=== PATIENT | female | born 1940 | race Caucasian/White ===

== ENCOUNTER → 2022-05-24 06:19 | Outpatient (CLI) | payer MEDICARE, SELFPAY ==
[2022-05-24 19:08] LABS: Alanine Aminotransferase 16 U/L (12-78); Albumin Level 4.2 g/dl (3.5-5.0); Albumin/Globulin Ratio 1.4 (1.1-1.8); Alkaline Phosphatase 81 U/L (38-126); Anion Gap 11.6 mEq/L (5-15); Aspartate Amino Transferase 28 U/L (14-36); Bilirubin,Total 0.3 mg/dl (0.2-1.3); Blood Urea Nitrogen 29 mg/dl (7-17); Calcium 9.9 mg/dl (8.4-10.2); Carbon Dioxide 24 mmol/L (22.0-30.0); Chloride 105 mmol/L (98-107); Estimated Glomerular Filt Rate 48 ml/min (>60); GFR (African American) 58 ML/MIN (>60); Glucose 91 mg/dl (74-100); Potassium 4.6 mmoL/L (3.5-5.1); Sodium 136 mmol/L (136-145); Total Protein,Serum 7.2 g/dl (6.3-8.2); Uric Acid 7.9 mg/dl (2.5-6.2)
[2022-05-24 19:15] LABS: Erythrocyte Sedimentation Rate 22 mm/hr (0-30)
== END ==
PROVIDERS: PCP Family Medicine; Visit Provider Family Medicine
DX: E79.0 Hyperuricemia without signs of inflammatory arthritis and tophaceous disease (principal); M25.572 Pain in left ankle and joints of left foot
CPT/HCPCS: 80053; 84550; 85651

== ENCOUNTER → 2022-08-23 10:40 | Outpatient (CLI) | payer MEDICARE, SELFPAY ==
[2022-08-23 19:00] LABS: Alanine Aminotransferase 14 U/L (12-78); Albumin Level 4.4 g/dl (3.5-5.0); Albumin/Globulin Ratio 1.6 (1.1-1.8); Alkaline Phosphatase 101 U/L (38-126); Anion Gap 15.3 mEq/L (5-15); Aspartate Amino Transferase 28 U/L (14-36); Bilirubin,Total 0.5 mg/dl (0.2-1.3); Blood Urea Nitrogen 27 mg/dl (7-17); Carbon Dioxide 27 mmol/L (22.0-30.0); Chloride 99 mmol/L (98-107); Estimated Glomerular Filt Rate 53 ml/min (>60); GFR (African American) 65 ML/MIN (>60); Globulin 2.8 g/dL (1.3-3.2); Glucose 79 mg/dl (74-100); Potassium 5.3 mmoL/L (3.5-5.1); Sodium 136 mmol/L (136-145); Total Protein,Serum 7.2 g/dl (6.3-8.2); Uric Acid 6.1 mg/dl (2.5-6.2)
[2022-08-23 19:15] LABS: Free T4 (Free Thyroxine) 1.18 ng/dl (0.78-2.19)
== END ==
PROVIDERS: PCP Nurse Practitioner; Visit Provider Nurse Practitioner
DX: E03.9 Hypothyroidism, unspecified (principal); E79.0 Hyperuricemia without signs of inflammatory arthritis and tophaceous disease; I10 Essential (primary) hypertension
CPT/HCPCS: 80053; 84439; 84443; 84550

== ENCOUNTER → 2022-09-16 13:08 | Outpatient (CLI) | payer MEDICARE, SELFPAY ==
--- NOTE | 2022-09-16 13:09 | MM_ITS ---
PROCEDURE INFORMATION: Exam: Bilateral Screening 3D Mammography Exam date and time: 09/16/2022 1:09 PM Age: 82 years old Clinical indication: Screening examination TECHNIQUE: Imaging protocol: Bilateral Screening tomosynthesis and 2D mammography including computer-aided detection (CAD) when performed. COMPARISON: MG SCREENING BILATERAL 06/13/2018 8:58 AM FINDINGS: MAMMOGRAPHY: Breast composition: The breasts are heterogeneously dense, which may obscure small masses. Mass: None. Architectural distortion: None. Calcifications: No suspicious calcifications. Asymmetric density: None. Skin thickening: None. Axillary adenopathy: None. IMPRESSION: No mammographic evidence of malignancy. Annual screening is recommended unless otherwise clinically indicated. ASSESSMENT: BI-RADS Category 1: Negative
== END ==
PROVIDERS: PCP Nurse Practitioner; Visit Provider Nurse Practitioner
DX: Z12.31 Encounter for screening mammogram for malignant neoplasm of breast (principal)
CPT/HCPCS: 77063; 77067

== ENCOUNTER 2022-12-27 07:26 | Day surgery (SDC) | payer MEDICARE, SELFPAY ==
[2022-12-26 09:34] VITALS: BMI 39.2
[2022-12-27 07:52] VITALS: BP 153/81; PULSE 95; RESP 18; TEMP 36.3; O2SAT 97
--- NOTE | 2022-12-27 08:13 | P.PN_ITS ---
[facility] Disclaimer: The information contained in this section may have been updated after the patient was seen, as this information can be updated by other users. Medical History Acquired hypothyroidism Anxiety and depression Colon polyp Essential hypertension History of cataract History of COVID-19 HTN (hypertension) Hyperlipidemia Hyperuricemia Pneumonia Uterine cancer Surgical History History of colonoscopy (~2018) History of dental surgery History of hysterectomy (~2014) History of hysterectomy History of tonsillectomy Family History Other Cancer Diabetes Hypertension Social History Smoking Status: Former smoker years smoked: 2 smoking status stop date: 1977 alcohol intake: never substance use type: denies use current occupational status: retired Travel in the last 8 weeks: None caffeine: Yes [facility] Anesthesia Checklist Patient Identification Patient Identification: Arm Band Structural Data Admitted From: Home Planned Operative Procedure/s: colonoscopy Consent for Planned Operative Procedure(s) Verified: Yes Verified Documents: Surgical Consent and History and Physical NPO Status Verified Time NPO: 00:00 Additional verifications Anesthesia Reactions: No Airway Assessment C-Spine Mobility Assessed: Yes TMJ Mobility Assessed: Yes Dentition: Dentures-good fit Neurological Assessment Level of Consciousness: Awake and Alert Anesthesia Plan Anesthesia Risk discussed: Yes Anesthesia Plan: Verified ASA Class: II Anesthesia Type: MAC
[2022-12-27 08:14] VITALS: O2SAT 97
--- NOTE | 2022-12-27 08:54 | P.PCN_ITS ---
Procedure: Date: 12/27/22 Patient Date of :: 1940 Procedure Performed:: Colonoscopy with polypectomy Indications:: History of colon polyps Patient states that she is status post colonoscopy (x2) between 2018 and 2019 with a known history of large complex polyps in the right colon. She reports undergoing tattoo placement during her original colonoscopy to facilitate future evaluation. Performing Provider:: Demond Valadez MD Referring Provider:: . Sedation:: Monitored anesthesia care Procedure:: After informed consent was obtained the patient was taken to the endoscopy suite. Sedation ensued after the patient was transferred to the left lateral decubitus position. Pulse, blood pressure, and oxygen saturation were monitored throughout the procedure. Digital rectal exam revealed no significant abnormality. The colonoscope was placed in position. The entire colon was evaluated. The colonoscope was carefully removed and the patient was transferred to recovery in stable condition. Please see findings and specimens below for detail. Findings:: Hemorrhoidal cushions Bowel preparation moderate to poor Fairly significant lack of relaxation/spasticity Recurrent/persistent polyp at site of tattoo Specimens:: Recurrent/persistent right colon polyp (cold snare) Recommendations:: Timing of repeat colonoscopy is pending pathology but will likely be between 6- 12 months with extended/alternate bowel preparation. Complications:: No immediate Estimated blood obtained (mL): 1
[2022-12-27 08:55] VITALS: BP 87/59; PULSE 87; RESP 12; TEMP 36.6; O2SAT 96
[2022-12-27 09:05] VITALS: BP 105/64; PULSE 88; RESP 16; O2SAT 95
[2022-12-27 09:15] VITALS: BP 102/60; PULSE 89; RESP 16; O2SAT 99
[2022-12-27 09:25] VITALS: BP 110/70; PULSE 85; RESP 16; TEMP 36.6; O2SAT 99
== END 2022-12-27 09:41 | disposition home or self-care (01) ==
PROVIDERS: PCP Family Medicine; Visit Provider Surgery
PROC: 0DJD8ZZ Inspection of Lower Intestinal Tract, Via Natural or Artificial Opening Endoscopic (ICD-10-PCS; principal; 2022-12-27 08:30)
DX: Z12.11 Encounter for screening for malignant neoplasm of colon (principal); Z86.010 Personal history of colon polyps; Z79.899 Other long term (current) drug therapy
CPT/HCPCS: 45385; 88300

== ENCOUNTER → 2023-02-13 23:21 | Outpatient (CLI) | payer MEDICARE, SELFPAY ==
[2023-02-13 19:26] LABS: Microalbumin/Creatinine Ratio 14.5
[2023-02-13 19:28] LABS: Creatinine,Urine Random 122 mg/dL (Not Estab.)
[2023-02-13 19:47] LABS: Chloride 97 mmol/L (98-107); Potassium 4.5 mmoL/L (3.5-5.1); Sodium 138 mmol/L (136-145)
[2023-02-13 19:49] LABS: Alanine Aminotransferase 18 U/L (12-78); Blood Urea Nitrogen 27 mg/dl (7-17); Estimated Glomerular Filt Rate 48 ml/min (>60); GFR (African American) 58 ML/MIN (>60)
[2023-02-13 19:50] LABS: Albumin Level 4.2 g/dl (3.5-5.0); Albumin/Globulin Ratio 1.4 (1.1-1.8); Alkaline Phosphatase 72 U/L (38-126); Anion Gap 19.5 mEq/L (5-15); Aspartate Amino Transferase 29 U/L (14-36); Bilirubin,Total 0.6 mg/dl (0.2-1.3); Calcium 9.8 mg/dl (8.4-10.2); Carbon Dioxide 26 mmol/L (22.0-30.0); Chol/HDL Ratio 4.5 (1-3.5); Cholesterol 218 mg/dl (140-200); Glucose 87 mg/dl (74-100); HDL Cholesterol 48 mg/dl (40-60); Total Protein,Serum 7.2 g/dl (6.3-8.2); Triglycerides 157 mg/dl (30-150); Uric Acid 6.1 mg/dl (2.5-6.2); VLDL Cholesterol 31 mg/dL (0-40)
[2023-02-13 20:01] LABS: Direct LDL Cholesterol 125.27 mg/dL (100-129)
[2023-02-13 20:06] LABS: Free T4 (Free Thyroxine) 1.54 ng/dl (0.78-2.19)
[2023-02-13 20:21] LABS: Thyroid Stimulating Hormone 0.11 uIU/mL (0.465-4.68)
== END ==
PROVIDERS: PCP Nurse Practitioner; Visit Provider Nurse Practitioner
DX: E03.9 Hypothyroidism, unspecified (principal); E78.5 Hyperlipidemia, unspecified; E79.0 Hyperuricemia without signs of inflammatory arthritis and tophaceous disease; I10 Essential (primary) hypertension; F32.A Depression, unspecified; F41.9 Anxiety disorder, unspecified
CPT/HCPCS: 80053; 80061; 82043; 82570; 84439; 84443; 84550

== ENCOUNTER 2023-05-01 18:19 | Emergency (ER) | payer MEDICARE, SELFPAY ==
[2023-05-01 18:20] VITALS: BP 156/73; PULSE 88; RESP 18; TEMP 36.7; O2SAT 96; BMI 37.9
[2023-05-01 18:31] VITALS: BP 154/64; PULSE 88; RESP 20; O2SAT 97
--- NOTE | 2023-05-01 18:44 | PC.NURSE ---
DR RAINES AT BEDSIDE
--- NOTE | 2023-05-01 19:01 | HMH.EDGENADL ---
Discharge Plan Disposition Patient Disposition: Home, Self-Care Prescriptions Prescriptions: New cephalexin 500 mg capsule 500 mg PO QID 10 Days Qty: 40 0RF prednisone 50 mg tablet 50 mg PO DAILY 5 Days Qty: 5 0RF Rx Instructions: Please begin 1 day after ED visit colchicine 0.6 mg capsule 0.6 mg PO BID 14 Days Qty: 28 0RF Rx Instructions: Please take 1.2 mg followed by 0.6 mg after 1 hour (max dose 1.8 mg/day). Day 2 and thereafter 0.6 mg BID until flare resolves. No Action levothyroxine [Euthyrox] 75 mcg tablet 75 mcg PO .COMPLEX Qty: 90 1RF Rx Instructions: 75 mcg orally take 1/2 tab on Monday and 1 tab daily Monday through Monday; lisinopril-hydrochlorothiazide 20-25 mg tablet 1 tab PO DAILY Qty: 90 1RF citalopram 20 mg tablet 20 mg PO DAILY Qty: 90 1RF allopurinol 100 mg tablet 100 mg PO DAILY Qty: 90 1RF Referrals Follow up/Referrals: Stephen Banks MD [Primary Care Provider] - See instructions Activity Restrictions/Add. Instructions Additional Instructions/Restrictions: The erythema and redness and tenderness surrounding her first MTP joint on her foot is most likely gout. However without a history of an arthrocentesis proving gouty arthritis as well as with the systemic symptoms and low-grade temperature that you have had cannot rule out an infection specifically a septic joint with cellulitis. Please return with worsening symptoms and keep low threshold to return to the emergency department if your temperature is greater than 100.4 consistently or if you are feeling systemically ill. Clinical Impressions Clinical Impression: Gout attack Discharge ED Provider: Whit Pryor General Adult HPI General Chief complaint: Extremity Problem,Nontraumatic Stated complaint: possible gout in right foot Time Seen by Provider: 05/01/23 18:41 Mode of Arrival: Wheelchair Limitations: No Limitations Description of Symptoms (Recalled from ER Triage Doc. by RN): PT REPORT RIGHT FOOT PAIN/REDNESS AND SWELLING SINCE MONDAY NIGHT THAT HAS NOT IMPROVED. PT REPORTS HX OF GOUT. NO INJURY History of Present Illness HPI narrative: 83-year-old female here with right foot pain and swelling and erythema. States she has a history of gout and states I think this is a gout flare . She has never had an arthrocentesis proving the diagnosis of gout however has had it many times with improvement with prednisone and colchicine. However she does states she has had some nausea and some chills. This began on her right foot at the MTP joint and has had some erythema that spread on the dorsal aspect of her foot. Related Data Previous Rx's Medication Instructions Recorded allopurinol 100 mg tablet 100 mg PO DAILY hyperuricemia #90 02/15/23 tabs citalopram 20 mg tablet 20 mg PO DAILY Anxiety #90 tabs 02/15/23 levothyroxine 75 mcg tablet 75 mcg PO .COMPLEX THYROID #90 tabs 02/15/23 (Euthyrox) lisinopril 20 1 tab PO DAILY BP #90 tabs 02/15/23 mg-hydrochlorothiazide 25 mg tablet cephalexin 500 mg capsule 500 mg PO QID 10 days #40 caps 05/01/23 colchicine 0.6 mg capsule 0.6 mg PO BID 14 days #28 caps 05/01/23 prednisone 50 mg tablet 50 mg PO DAILY 5 days #5 tabs 05/01/23 Allergies Allergy/AdvReac Type Severity Reaction Status Date / Time ibuprofen Allergy Verified 02/13/23 11:28 surgical tape Allergy Blister Uncoded 02/13/23 11:28 [facility] Disclaimer: The information contained in this section may have been updated after the patient was seen, as this information can be updated by other users. Medical History (Updated 05/01/23 @ 19:00 by Whit Pryor MD) Acquired hypothyroidism Anxiety and depression Colon polyp Essential hypertension History of cataract History of COVID-19 HTN (hypertension) Hyperlipidemia Hyperuricemia Pneumonia Uterine cancer Surgical History (Updated 05/01/23 @ 18:36 by Isabel Vega RN) History of colonoscopy (~2019)
[2023-05-01 19:12] VITALS: BP 146/53; PULSE 84; RESP 18; TEMP 36.8; O2SAT 96
== END 2023-05-01 19:12 | disposition home or self-care (01) ==
PROVIDERS: Emergency Provider Student in an Organized Health Care Education/Training Program; PCP Family Medicine
DX: M10.071 Idiopathic gout, right ankle and foot (principal); E03.9 Hypothyroidism, unspecified; F41.9 Anxiety disorder, unspecified; F32.A Depression, unspecified; I10 Essential (primary) hypertension; E78.5 Hyperlipidemia, unspecified; Z87.891 Personal history of nicotine dependence
CPT/HCPCS: 99283

== ENCOUNTER → 2023-07-11 23:34 | Outpatient (CLI) | payer MEDICARE, SELFPAY ==
[2023-07-11 18:39] LABS: Basophils # 0.1 K/mm3 (0-0.2); Basophils % 0.6 % (0.1-2.0); Eosinophils # 0.5 K/mm3 (0.0-0.4); Hematocrit 47.6 % (37.0-47.0); Hemoglobin 14.7 g/dL (12.2-16.2); Lymphocytes # 3.8 K/mm3 (0.7-4.5); Lymphocytes % 41.4 % (10-50); Mean Corpuscular HGB Conc 30.9 g/dL (31.8-35.4); Mean Corpuscular Hemoglobin 30.9 pg (27.0-31.2); Mean Platelet Volume 9.8 fl (7.4-10.4); Monocytes # 0.6 K/mm3 (0.1-1.0); Monocytes % 6.5 % (1.7-9.3); Neutrophils # 4.2 K/mm3 (1.8-7.8); Neutrophils % 45.5 % (37.0-80.0); Platelet Count 450 K/mm3 (142-424); Red Blood Count 4.77 M/mm3 (4.20-5.40); Red Cell Distribution Width 14.3 % (11.5-17.5); White Blood Count 9.1 K/mm3 (4.8-10.8)
[2023-07-11 19:05] LABS: Alanine Aminotransferase 20 U/L (12-78); Albumin Level 4.1 g/dl (3.5-5.0); Albumin/Globulin Ratio 1.2 (1.1-1.8); Alkaline Phosphatase 70 U/L (38-126); Anion Gap 16.4 mEq/L (5-15); Aspartate Amino Transferase 30 U/L (14-36); Bilirubin,Total 0.5 mg/dl (0.2-1.3); Blood Urea Nitrogen 26 mg/dl (7-17); Calcium 10.2 mg/dl (8.4-10.2); Carbon Dioxide 21 mmol/L (22.0-30.0); Chloride 102 mmol/L (98-107); Estimated Glomerular Filt Rate 48 ml/min (>60); GFR (African American) 58 ML/MIN (>60); Globulin 3.4 g/dL (1.3-3.2); Glucose 104 mg/dl (74-100); Potassium 4.4 mmoL/L (3.5-5.1); Sodium 135 mmol/L (136-145); Total Protein,Serum 7.5 g/dl (6.3-8.2); Uric Acid 7.7 mg/dl (2.5-6.2)
== END ==
PROVIDERS: PCP Family Medicine; Visit Provider Nurse Practitioner
DX: E79.0 Hyperuricemia without signs of inflammatory arthritis and tophaceous disease (principal)
CPT/HCPCS: 80053; 84550; 85025

== ENCOUNTER 2023-07-18 08:18 | Day surgery (SDC) | payer MEDICARE, SELFPAY ==
--- NOTE | 2023-07-17 10:30 | SUR.PREOP ---
attempted to call the number provided, it is the number to [employer] in [place], [place]. the number provided for her next to kin, her granddaughter, is also disconnected.
--- NOTE | 2023-07-17 10:33 | SUR.PREOP ---
notified Dr. Tomlin office, spoke with [facility]. they have the same numbers on her chart as we do.
--- NOTE | 2023-07-18 08:27 | P.PCN_ITS ---
Procedure: Date: 07/18/23 Patient Date of :: 1940 Procedure Performed:: Colonoscopy Indications:: History of colon polyps Colonoscopy is in 2018 and again in 2019 revealed a large/complex right colon po lyp status post excision and tattoo placement. Repeat colonoscopy in December of this year was somewhat complicated by moderate to poor bowel preparation and poor relaxation. Persistent polypoid tissue noted at tattoo site. Pathology of the persistent polypoid tissue was notable only for foreign material consistent with dietary origin . Performing Provider:: Demond Valadez MD Referring Provider:: . Sedation:: Monitored anesthesia care Procedure:: After informed consent was obtained the patient was taken to the endoscopy suite. Sedation ensued after the patient was transferred to the left lateral decubitus position. Pulse, blood pressure, and oxygen saturation were monitored throughout the procedure. Digital rectal exam revealed no significant abnormality. The colonoscope was placed in position. The entire colon was evaluated. The colonoscope was carefully removed and the patient was transferred to recovery in stable condition. Please see findings and specimens below for detail. Findings:: Bowel preparation fair to moderate Fairly significant tortuosity and spasticity No obvious lesion within the region of right-colonic/cecal tattoo Specimens:: None Recommendations:: Repeat colonoscopy in 1-2 years secondary to history of large complex polyps, fair to moderate bowel preparation, and tortuosity/spasticity. Complications:: No immediate Estimated blood obtained (mL): 0 Colonoscopy Component Colonoscopy Component Was a colonoscopy performed during today's procedure?: Yes Recommended follow up colonoscopy of at least 10 years?: No If no, follow up colonoscopy recommended in ___ years?: (See above) Reason for not recommending >/= 10 yr follow-up interval?: (See above)
[2023-07-18 08:33] VITALS: BP 192/99; PULSE 98; RESP 18; TEMP 36.1; O2SAT 96; BMI 40.3
[2023-07-18 08:54] VITALS: O2SAT 95
[2023-07-18 09:20] VITALS: BP 99/62; PULSE 95; RESP 14; TEMP 36.4; O2SAT 95
--- NOTE | 2023-07-18 09:28 | P.PNANES_ITS ---
[facility] Disclaimer: The information contained in this section may have been updated after the patient was seen, as this information can be updated by other users. Medical History Acquired hypothyroidism Anxiety and depression Colon polyp Essential hypertension History of cataract History of COVID-19 HTN (hypertension) Hyperlipidemia Hyperuricemia Pneumonia Uterine cancer Surgical History (Updated 07/18/23 @ 08:38 by Amanda Carpenter RN) H/O breast biopsy History of colonoscopy (~2018) History of dental surgery History of hysterectomy (~2014) History of hysterectomy History of tonsillectomy Status post left foot surgery Family History Other Cancer Diabetes Hypertension Social History (Updated 07/18/23 @ 08:38 by Amanda Carpenter RN) Smoking Status: Former smoker years smoked: 2 smoking status stop date: 1977 alcohol intake: never substance use type: denies use current occupational status: retired Travel in the last 8 weeks: None caffeine: Yes [facility] Anesthesia Checklist Patient Identification Patient Identification: Arm Band and Family Structural Data Admitted From: Home Planned Operative Procedure/s: colonoscopy Consent for Planned Operative Procedure(s) Verified: Yes NPO Status Verified Time NPO: 00:00 Additional verifications Patient : No Anesthesia Reactions: No Hx Blood Transfusions: No Blood Transfusion Reaction: No Cephalosporin Allergy: No Previous Colonoscopy: Yes Airway Assessment Mallampati Score:: Class III C-Spine Mobility Assessed: Yes TMJ Mobility Assessed: Yes Dentition: Edentulous Neurological Assessment Level of Consciousness: Awake, Alert, Appropriate and Follows Commands Hx Seizures: No Numbness or tingling in extremities: No Anesthesia Plan Anesthesia Risk discussed: Yes ASA Class: II Anesthesia Type: MAC
[2023-07-18 09:30] VITALS: BP 130/75; PULSE 90; RESP 16; O2SAT 94
[2023-07-18 09:40] VITALS: BP 134/72; PULSE 83; RESP 16; O2SAT 96
[2023-07-18 09:50] VITALS: BP 128/70; PULSE 80; RESP 16; O2SAT 96
== END 2023-07-18 10:00 | disposition home or self-care (01) ==
PROVIDERS: PCP Family Medicine; Visit Provider Surgery
PROC: 0DJD8ZZ Inspection of Lower Intestinal Tract, Via Natural or Artificial Opening Endoscopic (ICD-10-PCS; CPT G0105; principal; 2023-07-18 09:30)
DX: Z12.11 Encounter for screening for malignant neoplasm of colon (principal); Z86.010 Personal history of colon polyps; K56.2 Volvulus
CPT/HCPCS: G0105

== ENCOUNTER → 2023-08-16 23:53 | Outpatient (CLI) | payer MEDICARE, SELFPAY ==
[2023-08-16 18:45] LABS: Alanine Aminotransferase 21 U/L (12-78); Albumin Level 3.8 g/dl (3.5-5.0); Albumin/Globulin Ratio 1.4 (1.1-1.8); Alkaline Phosphatase 60 U/L (38-126); Anion Gap 10.3 mEq/L (5-15); Aspartate Amino Transferase 35 U/L (14-36); Bilirubin,Total 0.9 mg/dl (0.2-1.3); Blood Urea Nitrogen 14 mg/dl (7-17); Calcium 9.5 mg/dl (8.4-10.2); Carbon Dioxide 33 mmol/L (22.0-30.0); Chloride 100 mmol/L (98-107); Estimated Glomerular Filt Rate 60 ml/min (>60); GFR (African American) 73 ML/MIN (>60); Globulin 2.7 g/dL (1.3-3.2); Glucose 91 mg/dl (74-100); Potassium 3.3 mmoL/L (3.5-5.1); Sodium 140 mmol/L (136-145); Total Protein,Serum 6.5 g/dl (6.3-8.2); Uric Acid 5.1 mg/dl (2.5-6.2)
[2023-08-16 18:49] LABS: Hemoglobin A1C 5.7 % (4.0-6.0)
[2023-08-16 19:02] LABS: Free T4 (Free Thyroxine) 1.59 ng/dl (0.78-2.19)
[2023-08-16 19:15] LABS: Thyroid Stimulating Hormone 3.93 uIU/mL (0.465-4.68)
== END ==
PROVIDERS: PCP Family Medicine; Visit Provider Nurse Practitioner
DX: E03.9 Hypothyroidism, unspecified (principal); E79.0 Hyperuricemia without signs of inflammatory arthritis and tophaceous disease; R73.01 Impaired fasting glucose; F32.A Depression, unspecified; F41.9 Anxiety disorder, unspecified
CPT/HCPCS: 80053; 83036; 84439; 84443; 84550

== ENCOUNTER → 2023-08-18 12:24 | Outpatient (CLI) | payer MEDICARE, SELFPAY ==
--- NOTE | 2023-08-18 12:29 | CT_ITS ---
FINAL REPORT TECHNIQUE: Then section axial CT images of the chest were obtained with contrast. Three-D reformatted images were also obtained.This study was performed with techniques to keep radiation doses as low as reasonably achievable (ALARA). Individualized dose reduction techniques using automated exposure control or adjustment of mA and/or kV according to the patient''s size were employed. CLINICAL HISTORY: chest pain, shortness of breath FINDINGS: There is no evidence of pulmonary embolism. There is no evidence of thoracic aortic aneurysm or dissection. There is no evidence of mediastinal or hilar mass or adenopathy. There is no evidence of pulmonary mass or suspicious nodule. No localized inflammatory process is seen within the lungs. There is mild scarring at the lung bases. Limited images of the upper abdomen demonstrate a large gallstone in the gallbladder. IMPRESSION: No evidence of pulmonary embolism. Cholelithiasis. Reviewed, Interpreted and Dictated by Jesus Najera III, MD Transcribed by Carmen Higuera Authenticated and [facility]
== END ==
PROVIDERS: PCP Nurse Practitioner; Visit Provider Internal Medicine
DX: E03.9 Hypothyroidism, unspecified (principal); E78.5 Hyperlipidemia, unspecified; I10 Essential (primary) hypertension; R06.00 Dyspnea, unspecified; R07.9 Chest pain, unspecified; Z87.891 Personal history of nicotine dependence
CPT/HCPCS: 71275; Q9967

== ENCOUNTER → 2023-08-30 11:11 | Outpatient (CLI) | payer MEDICARE, SELFPAY ==
--- NOTE | 2023-08-30 11:11 | NM_ITS ---
APPROVED REPORT Exam: Nuclear Stress Test Indication: chest pain..soa..fatigue Patient Location: Outpatient Stress Tech: Krissy Hall HI Tech:KARINA Pagan RT(R)(N) Ht: 5 ft 4 in Wt: 240 lbs Bra Size: d HR: 93 bpm BP: 145/79 mmHg BSA: 2.11 m2 Rhythm: NSR TID: 1.19 BMI: 41.1 History: chest pain..soa..fatigue Procedure: Patient received 0.4 mg of intravenous Lexiscan, resting heart rate 93 bpm, resting blood pressure 145/79 mmHg, with Lexiscan maximum heart rate achieved was 106 bpm which is 85 % of the maximum predicted heart rate and blood pressure was 149/72 mmHg. With Lexiscan, patient denied any complaint of chest pain. Cardiac Stress and Resting SPECT Images: Cardiac Stress and Resting SPECT images were obtained using technetium 99m Myoview 32.1 mCi stress and 10.28 mCi at rest. Resting and stress imaging in supine and prone positions demonstrate no evidence of fixed or reversible perfusion defects. Gated imaging demonstrates low-normal global and regional LV systolic function. LVEF is calculated at 50% Conclusion: No evidence of fixed or reversible perfusion defects. Gated imaging demonstrates low-normal global and regional LV systolic function. LVEF is calculated at 50% Electronically signed by : Maribel Perez MD 09/10/2023 21:33:15
--- NOTE | 2023-08-30 11:36 | CA_ITS ---
APPROVED REPORT EXAM: Comprehensive 2D, Doppler, and color-flow Echocardiogram Conditioner Tumbler Operator: Lanny Orellana RVT Ht: 5 ft 4 in Wt: 247lbs BSA: 2.14 BP: 173/87 mmHg Indications: CP,HTN,EX SMOKER,HLD,SOA TDS-PT BODY HABITUS,OVERLAYING LUNG 2D Dimensions IVSd 0.80 cm F: 0.6-1.0 LVEF (Visual) 74.20 % PWd 0.76 cm F: 0.6 - 1.0 LA Volume 33.90 mL LVDd 3.36 cm F: 3.9 - 5.3 LA Volume Index 15.84 mL/m2 (M/F) 16-34 LVDs 1.95 cm F: 2.2 - 3.5 LVOT 2.35 cm (M/F) 1.5-2.5 M-Mode Dimensions LA Diam 3.25 cm (1.9-4.0) Ao Diam 3.73 cm (2.0-3.7) TAPSE 1.66 (<1.7) LV Diastology MED E' 4.50 (< 7 cm/sec) LAT E' 6.50 (<10 cm/sec) Aortic Valve LVOT Max 91.00 (70-110 cm/s) LVOT VTI 18.56 cm AoV Peak Luis Daniel. 121.00 (50-130 cm/s) AI PHT 917.00 ms AO Peak GR. 5.90 mmHg AO Mean GR. 3.40 (<5 mmHg) AO VTI 22.11 (18-25 cm) LALITA (VTI) 3.64 (2.5-4.5 cm2) Pulmonary Valve PV Peak Velocity 76.00 (50-150 cm/s) Tricuspid Valve TR P. Velocity 248.00 cm/s RAP Estimate 10.00 mmHg RVSP 34.60 mmHg Left Ventricle The left ventricle is normal size. The left ventricular systolic function is normal. The left ventricular ejection fraction is within the normal range. There is normal left ventricular wall thickness. There is normal LV segmental wall motion. Diastolic function is indeterminate. LVEF is 60%. Right Ventricle The right ventricle is normal size. The right ventricular systolic function is normal. Atria The left atrium size is normal. The right atrium size is normal. There is no Doppler evidence of interatrial shunt. Aortic Valve The aortic valve is mildly thickened. There is no aortic valvular stenosis. Mild aortic regurgitation. Mitral Valve The mitral valve leaflets are mildly thickened. No evidence of mitral valve stenosis. Trace mitral regurgitation. Tricuspid Valve The tricuspid valve leaflets are thin and pliable. Mild tricuspid regurgitation. RVSP is 25-30 mmHg. Pulmonic Valve The pulmonary valve is normal in structure. Mild pulmonic regurgitation. Great Vessels The aortic root is normal in size. The ascending aorta is mildly dilated, measuring 3.8 cm in diameter. IVC is normal in size and collapses >50% with inspiration. Pericardium There is no pericardial effusion. Other Information Study Quality: Fair Conclusion Normal biventricular systolic function. Mild AI, mild TR. Mildly dilated ascending aorta (3.8 cm). Electronically signed by : Maribel Perez MD 09/10/2023 20:09:55
--- NOTE | 2023-08-30 13:19 | CA_ITS ---
APPROVED REPORT Exam: Pharmacologic Technologist: Krissy Vicente, Ht: 5 ft 4 in Wt: 247 lbs BSA: 2.14 m2 HR: 87 bpm BP: 145/79 mmHg Rhythm: NSR Medical History Medications: Levothyroxine,,,,, Allopurinol,,,,, Lisinopril/HCTZ,,,,, Citalopram,,,,, ColCHINE,,,,, Stress Test Details Test: LEXISCAN Reason for pharmacologic stress test: physical limitation. HR Resting HR: 93 bpm Max Heart Rate (APMHR): 139 bpm Max HR Achieved: 106 bpm Target HR (85% APMHR): 118 bpm % of APMHR: 76 Recovery HR: 95 bpm BP Resting BP: 145/79 mmHg Max BP: 149/72 mmHg Recovery BP: 147.0/76.0 mmHg ECG Resting ECG: NSR, cannot R/O old anterior AK, low voltage QRS Stress ECG: No significant ST changes Arrhythmia: None Clinical Exercise duration: 04:00 min Highest Stage Achieved: Exercise capacity: 1.0 METs Stress ECG Conclusion Symptoms: Mild head discomfort, mild SOA. Arrhythmias/Ectopy: None ST-T Changes: No significant ST changes. Conclusion: Unremarkable Lexiscan stress. Myoview images reported separately. Test Summary REST . . . . . . . Resting REST 04:11 . . 93 . 145/ 79 . . Stage 1 . . . . . . . Myoview Injected Stage 1 01:00 . . 102 . . . . Stage 2 01:00 . . 106 . . . . Stage 3 01:00 . . 100 . 149/ 72 . . Stage 4 01:00 . . 98 . 143/ 71 . Stop exercise at 04:00 RECOVERY 01:00 . . 100 . . . . RECOVERY 02:00 . . 95 . . . . RECOVERY 03:00 . . 100 . 137/ 83 . . RECOVERY 04:00 . . 95 . 137/ 83 . . RECOVERY 04:40 . . 95 . 147/ 76 . . Electronically signed by : Maribel Perez MD 09/10/2023 21:31:57
== END ==
PROVIDERS: PCP Nurse Practitioner; Visit Provider Nurse Practitioner
DX: R07.9 Chest pain, unspecified (principal)
CPT/HCPCS: 78452; 93017; 93018; 93306; A9502; J2785

== ENCOUNTER 2023-09-13 07:25 | Outpatient (CLI) | payer MEDICARE, SELFPAY ==
[2023-09-13] VITALS (10 sets, daily range): BP systolic 107–150; BP diastolic 61–86; PULSE 61–92; RESP 16–18; TEMP 36.8; O2SAT 95–99; BMI 41.1
--- NOTE | 2023-09-13 07:26 | CT_ITS ---
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 A noncontrast coronary calcium scan was performed. A CT attenuation threshold of 130 Hounsfield units (HU) was used for the detection of calcium in contiguous voxels of 1 sq mm in area to be counted as individual lesions. Bolus tracking in the ascending aorta with a threshold of 180 HU was performed. Immediately afterwards, ECG synchronized cardiac CT was then performed from the cardiac base to apex using retrospective gating with ECG tube current modulation. A total of 85 mL of Isovue 370 mg/mL contrast medium was administered at 5 mL/sec followed by a saline flush using a biphasic injection protocol. A tube voltage of 120 KVp was used. The patient received the following medications prior to the cardiac CT. 100 mg of oral metoprolol 5 mg of intravenous metoprolol 0.8 mg of sublingual nitroglycerin The average heart rate at the time of acquisition was 62 bpm and regular. Image Reconstruction Transaxial images were reconstructed at 0.67 mm slide thickness. Data was reviewed interactively on an advanced workstation capable of 2 and 3-dimensional displays in all conventional reconstruction formats, including multiplanar reformations, maximum intensity projections, curved multiplanar reformations, and volume rendered reconstructions. When applicable, selected routine images describing the relevant coronary anatomy and pathology were saved and sent to PACS. Complications None Technical Quality Overall image quality was fair. Coronary artery opacification was suboptimal. Total DLP (Dose-Length Product) is 1282 mGy-cm. The reported value represents the total of one or more individual components during the CT acquisition of this date and at this time, and as such, the same value may appear in more than one CT report depending on the interpreting/reporting physicians. COMPARISON None FINDINGS CT Coronary Calcium Scoring LMA (Left Main Artery) = 0 LAD (Left Anterior Descending) = 213 LCX (Left Coronary Circumflex) = 153 RCA (Right Coronary Artery) = 78 Total Calcium Score = 444 using the AJ-130 method. The observed calcium score of 444 is at 77th percentile for subjects of the same age, sex, and race/ethnicity. The interpretation of the calcium heart score is based on the following continuum*: 0 = no calcified plaque detected (risk of coronary artery disease is very low ??? less than 5%) 1-10 = calcium detected in extremely minimal levels (risk of coronary diseases is still low ??? less than 10%) 11-100 = mild levels of plaque detected with certainty (mild or minimal narrowing of heart arteries is likely) 101-400 = definite,at least moderate levels of plaque detected (relatively high risk of a heart attack within 3-5 years) >401-999 = extensive levels of plaque detected (high risk of heart attack, high levels of vascular disease are present, high likelihood of at least one significant coronary narrowing) *The calcium heart score quantifies the burden of coronary calcification/plaque in the coronary arteries. The calcium heart score is not able to evaluate the presence or burden of non-calcified (i.e. soft) plaque. There is calcification present in the ascending and descending aorta, but no identifiable calcification in the aortic valve, mitral annulus or mitral valve, pericardium, or myocardium. Coronary CT Angiography Coronaries have normal origin and proximal course. The coronary arterial system is left dominant. Note: Stenosis is reported as maximum percentage diameter stenosis. Quantitative Stenosis Grading: Left Main (LM): The left main originates normally from the left sinus of Valsalva. The LM bifurcates into the left anterior descending artery and left circumflex artery. The LM has minimal luminal plaque, but overall is patent with no evidence of significant atherosclerosis. Left Anterior Descending (LAD) and Diagonal Branches: The LAD gives off 3 diagonal branches. There is mixed plaque in the proximal-LAD and mid-LAD segments with up to 30-50% mild luminal stenosis. There is no evidence of LAD bridge. Left Circumflex (LCX) and Obtuse Marginals (OM): The LCX gives off 2 Obtuse Marginal (OM) branches. The RCA gives off a posterior descending artery (PDA) There is calcification in the proximal LAD but without significant luminal narrowing. Right Coronary Artery (RCA): The RCA is a small caliber vessel. The RCA originates normally from the right sinus of Valsalva. There is non-calcified plaque in the ostial RCA with approximately 70% stenosis. The RCA and its branches are patent with no evidence of atherosclerosis. Non-Coronary Cardiac Findings: Analysis of the left ventricular (LV) structure and function was performed after 3-D reconstruction of the LV from axial images, with user-corrected automatic contouring for assessment of LV volumes and user-defined reconstruction from oblique planes for measurement of 3-D cardiac structure and function. LVEDV: 123.6 mL LVESV: 53.0 mL SV: 70.6 mL LVEF: 57.2 % -The left ventricle is normal in size with normal left ventricular systolic function. -There is no left atrial appendage filling defect. Two right pulmonary veins and two left pulmonary veins drain normally into the left atrium. -No pericardial thickening or calcification. -Central and branch pulmonary arteries in the [id number] are unremarkable. -Thoracic aorta within the visualized thoracic aortic-branches in the [id number] is unremarkable. Extracardiac Structures -Hiatal hernia is present. IMPRESSION -Technically difficult study due to body habitus, motion, and suboptimal opacification of coronary arteries. -Severe coronary calcification with an Agatston score = 444 using the AJ-130 method. -The observed calcium score of 444 is at 77th percentile for subjects of the same age, sex, and race/ethnicity. -Presence of possible significant flow-limiting atherosclerosis of the non-dominant RCA, as well as mild stenoses in the LAD and LCX. -CAD-RADS 4A. Management recommendations per ACC/AHA guidelines*, as clinically appropriate. -Hiatal hernia is present. *Recommendations: CAD RADS 0: Reassurance. Consider non-atherosclerotic causes of chest pain. CAD RADS 1: Consider non-atherosclerotic causes of chest pain. Consider preventive therapy and risk factor modification. CAD RADS 2: Consider non-atherosclerotic causes of chest pain. Consider preventive therapy and risk factor modification, particularly for patients with nonobstructive plaque in multiple segments. CAD RADS 3: Consider further functional testing. Consider symptom-guided anti-ischemic and preventive pharmacotherapy as well as risk factor modification per published guideline statements. CAD RADS 4A: Consider further functional testing or invasive coronary angiography with revascularization per published guideline statements. Consider symptom-guided anti-ischemic and preventive pharmacotherapy as well as risk factor modification per published guideline statements. CAD RADS 4B: Invasive coronary angiography recommended with revascularization per published guideline statements. Consider symptom-guided anti-ischemic and preventive pharmacotherapy as well as risk factor modification per published guideline statements. CAD RADS 5: Consider invasive angiography and/or viability assessment with revascularization per published guideline statements. Consider symptom-guided anti-ischemic and preventive pharmacotherapy as well as risk factor modification per published guideline statements. CRITICAL RESULT None COMMUNICATION Per this written report The coronary and cardiac findings of this CCTA were reviewed, reported, and signed by Mateus Perez MD (Weigher Alloy) Conclusion Electronically signed by : Maribel Perez MD 09/13/2023 14:12:39
[2023-09-13] MEDS: METOPROLOL TARTRATE 50MG TABLET 100 MG PO (07:48)
[2023-09-13] MEDS: METOPROLOL TARTRATE 5MG/5ML VIAL 5 MG IV (09:04)
[2023-09-13] MEDS: IOPAMIDOL-370 (76%);100ML BOTTLE 85 ML IV (09:35)
[2023-09-13] MEDS: SODIUM CHLORIDE 0.9% 10ML SYR (RAD ONLY) 10 ML IV (09:35)
[2023-09-13] MEDS: 0.9 % SODIUM CHLORIDE 50 ML VIAL IV (09:35)
== END 2023-09-13 10:10 | disposition home or self-care (01) ==
PROVIDERS: PCP Nurse Practitioner; Visit Provider Internal Medicine
DX: E03.9 Hypothyroidism, unspecified (principal); E78.5 Hyperlipidemia, unspecified; I10 Essential (primary) hypertension; R06.00 Dyspnea, unspecified; R07.9 Chest pain, unspecified; R93.1 Abnormal findings on diagnostic imaging of heart and coronary circulation; I25.10 Atherosclerotic heart disease of native coronary artery without angina pectoris; I25.84 Coronary atherosclerosis due to calcified coronary lesion
CPT/HCPCS: 75571; 75574; Q9967

== ENCOUNTER 2023-09-28 08:32 | Day surgery (SDC) | payer MEDICARE, SELFPAY ==
[2023-09-28] VITALS (13 sets, daily range): BP systolic 115–168; BP diastolic 43–79; PULSE 47–63; RESP 16–18; O2SAT 91–95; BMI 41.7
--- NOTE | 2023-09-28 07:29 | IR_ITS ---
APPROVED REPORT Patient Location: Outpatient Generator Repairer: KARINA Arreaga RT (R) PROCEDURES Left heart catheterization Left ventriculogram Selective coronary angiogram Attempted FFR to the LAD Intravascular ultrasound to the LAD Intravascular ultrasound of the dominant circumflex artery INDICATION Coronary artery disease, Angiographic ambiguity, Abnormal CCTA, Elevated calcium score Informed consent was obtained prior to the procedure. COMPLICATIONS None Estimated Blood Loss: Less than 10 mls TECHNIQUE One percent lidocaine used to anesthetize the right anterior aspect of the wrist. The right radial artery was accessed via the Seldinger technique. A 6 Spanish sheath was placed in the right radial artery. 2.5 mg of Verapamil, 800 mcg of nitroglycerin, 1mg Lidocaine and 5000 U Heparin were given through the arterial sheath. The papa catheter was also used to perform left heart catheterization, left ventriculogram and selective coronary angiogram. At the end the diagnostic angiogram therapeutic Was administered giving a therapeutic ACT and the guide catheter was placed in the left main artery followed by Choice PT extra-support wire placed down the LAD. 2 attempts at performing FFR were undertaken however there were technical abnormalities with the either equipment or monitor which prevented the FFR performance despite 2 separate nevus FFR catheter is being placed into the left main artery. After the FFR failed intravascular ultrasound probe was advanced and the LAD and circumflex artery were interrogated. Both MLA's in the proximal LAD and proximal circumflex artery exceeded 6 mm???. At the end of procedure the apparatus was removed the sheath was removed and hemostasis was achieved and TR banding patient was transferred to postop putting in stable condition ANGIOGRAPHIC RESULTS The left main artery Normal The left anterior descending artery Has proximal concentric 30 to 40% stenosis by angiography with remaining vessel having 10% luminal irregularities The circumflex artery Large dominant with a proximal 30 to 40% concentric stenosis with remaining vessel having 10 to 20% luminal irregularities The right coronary artery Vestigial with an ostial 70 to 80% stenosis The NO ventriculogram reveals Normal 65% The left ventricular end-diastolic pressure 20 mmHg IMPRESSION Mild to moderate disease in the proximal LAD as described above which is nonflow limiting Mild to moderate disease in the proximal abdominal circumflex artery which is also nonflow limiting Severe stenosis in a vestigial right coronary artery which is best managed medically and unlikely to be contributing to any angina or dyspnea Normal ejection fraction Elevated LVEDP PLAN 1. Medical management for coronary disease 2. Treatment of diastolic dysfunction which is likely etiology for patient's symptoms Electronically signed by : Ayo Buckner MD 09/28/2023 11:13:03
[2023-09-28 09:05] LABS: Basophils # 0.1 K/mm3 (0-0.2); Basophils % 0.7 % (0.1-2.0); Eosinophils # 0.5 K/mm3 (0.0-0.4); Eosinophils % 7.2 % (0.1-12.0); Hemoglobin 13.3 g/dL (12.2-16.2); Lymphocytes # 2.6 K/mm3 (0.7-4.5); Lymphocytes % 38.6 % (10-50); Mean Corpuscular HGB Conc 32.4 g/dL (31.8-35.4); Mean Corpuscular Hemoglobin 31.9 pg (27.0-31.2); Mean Corpuscular Volume 98.6 fl (81-99); Mean Platelet Volume 9.1 fl (7.4-10.4); Monocytes # 0.5 K/mm3 (0.1-1.0); Monocytes % 7.3 % (1.7-9.3); Neutrophils # 3.1 K/mm3 (1.8-7.8); Neutrophils % 46.2 % (37.0-80.0); Platelet Count 250 K/mm3 (142-424); Red Blood Count 4.16 M/mm3 (4.20-5.40); Red Cell Distribution Width 14.8 % (11.5-17.5); White Blood Count 6.7 K/mm3 (4.8-10.8)
[2023-09-28 09:12] LABS: Chloride 100 mmol/L (98-107); Sodium 139 mmol/L (136-145)
[2023-09-28 09:15] LABS: Blood Urea Nitrogen 17 mg/dl (7-17); Carbon Dioxide 32 mmol/L (22.0-30.0); Creatinine Clearance Estimated 38 mL/min (50-200); Estimated Glomerular Filt Rate 53 ml/min (>60); GFR (African American) 64 ML/MIN (>60)
[2023-09-28 09:16] LABS: Calcium 8.8 mg/dl (8.4-10.2); Glucose 93 mg/dl (74-100)
[2023-09-28 11:49] LABS: CATHL Activated Clotting Time 246 SEC (74-125)
== END 2023-09-28 14:27 | disposition home or self-care (01) ==
LOC: CATHLAB 08:34
PROVIDERS: PCP Nurse Practitioner; Visit Provider Internal Medicine
DX: E03.9 Hypothyroidism, unspecified (principal); E78.5 Hyperlipidemia, unspecified; I10 Essential (primary) hypertension; R06.00 Dyspnea, unspecified; R93.1 Abnormal findings on diagnostic imaging of heart and coronary circulation; I25.118 Atherosclerotic heart disease of native coronary artery with other forms of angina pectoris; Z79.899 Other long term (current) drug therapy; Z86.16 Personal history of COVID-19
CPT/HCPCS: 80048; 85025; 85347; 92978; 92979; 93458; 99152; 99153; C1725; C1760; C1769; J0153; J1644; Q9967

== ENCOUNTER 2023-10-17 10:19 | Outpatient (CLI) | payer MEDICARE, SELFPAY ==
[2023-10-17 11:20] LABS: Blood Urea Nitrogen 22 mg/dl (7-17); Calcium 9.4 mg/dl (8.4-10.2); Carbon Dioxide 26 mmol/L (22.0-30.0); Chloride 102 mmol/L (98-107); Estimated Glomerular Filt Rate 48 ml/min (>60); GFR (African American) 58 ML/MIN (>60); Glucose 82 mg/dl (74-100); Sodium 135 mmol/L (136-145)
[2023-10-17 11:21] LABS: Anion Gap 10.9 mEq/L (5-15); Potassium 3.9 mmoL/L (3.5-5.1)
== END 2023-10-17 23:59 ==
LOC: LAB 10:20
PROVIDERS: PCP Nurse Practitioner; Visit Provider Nurse Practitioner
DX: E03.9 Hypothyroidism, unspecified (principal); E78.5 Hyperlipidemia, unspecified; I11.9 Hypertensive heart disease without heart failure; I25.10 Atherosclerotic heart disease of native coronary artery without angina pectoris; R06.00 Dyspnea, unspecified; Z87.891 Personal history of nicotine dependence
CPT/HCPCS: 36415; 80048

== ENCOUNTER 2023-11-20 22:03 | Outpatient (CLI) | payer MEDICARE, SELFPAY ==
[2023-11-20 20:17] LABS: Alanine Aminotransferase 17 U/L (12-78); Albumin Level 3.9 g/dl (3.5-5.0); Albumin/Globulin Ratio 1.6 (1.1-1.8); Alkaline Phosphatase 61 U/L (38-126); Anion Gap 9.6 mEq/L (5-15); Aspartate Amino Transferase 28 U/L (14-36); Bilirubin,Total 0.7 mg/dl (0.2-1.3); Blood Urea Nitrogen 17 mg/dl (7-17); Calcium 9.9 mg/dl (8.4-10.2); Carbon Dioxide 28 mmol/L (22.0-30.0); Chloride 104 mmol/L (98-107); Chol/HDL Ratio 3.1 (1-3.5); Cholesterol 141 mg/dl (140-200); Estimated Glomerular Filt Rate 53 ml/min (>60); GFR (African American) 64 ML/MIN (>60); Globulin 2.5 g/dL (1.3-3.2); Glucose 97 mg/dl (74-100); HDL Cholesterol 45 mg/dl (40-60); Potassium 3.6 mmoL/L (3.5-5.1); Sodium 138 mmol/L (136-145); Total Protein,Serum 6.4 g/dl (6.3-8.2); Triglycerides 170 mg/dl (30-150); Uric Acid 5.4 mg/dl (2.5-6.2); VLDL Cholesterol 34 mg/dL (0-40)
[2023-11-20 20:26] LABS: Creatinine,Urine Random 191 mg/dL (Not Estab.)
[2023-11-20 20:28] LABS: Direct LDL Cholesterol 56.88 mg/dL (100-129)
[2023-11-20 20:29] LABS: Microalbumin/Creatinine Ratio 6.9
[2023-11-20 20:33] LABS: Hemoglobin A1C 5.8 % (4.0-6.0)
[2023-11-20 20:37] LABS: Free T4 (Free Thyroxine) 1.17 ng/dl (0.78-2.19)
[2023-11-20 20:50] LABS: Thyroid Stimulating Hormone 1.88 uIU/mL (0.465-4.68)
[2023-11-20 21:09] LABS: Vitamin B12 618 pg/mL (239-931)
== END 2023-11-20 23:59 ==
LOC: LAB.DROPOF 22:04
PROVIDERS: PCP Nurse Practitioner; Visit Provider Nurse Practitioner
DX: E03.9 Hypothyroidism, unspecified (principal); E78.5 Hyperlipidemia, unspecified; E79.0 Hyperuricemia without signs of inflammatory arthritis and tophaceous disease; I10 Essential (primary) hypertension; I25.10 Atherosclerotic heart disease of native coronary artery without angina pectoris; R73.01 Impaired fasting glucose
CPT/HCPCS: 80053; 80061; 82043; 82570; 82607; 83036; 84439; 84443; 84550

== ENCOUNTER 2024-01-02 21:07 | Outpatient (CLI) | payer MEDICARE, SELFPAY ==
[2024-01-02 19:28] LABS: Basophils # 0.1 K/mm3 (0-0.2); Basophils % 1.2 % (0.1-2.0); Eosinophils # 0.7 K/mm3 (0.0-0.4); Eosinophils % 8.2 % (0.1-12.0); Hematocrit 43.6 % (37.0-47.0); Hemoglobin 13.7 g/dL (12.2-16.2); Lymphocytes # 2.5 K/mm3 (0.7-4.5); Lymphocytes % 31.3 % (10-50); Mean Corpuscular HGB Conc 31.5 g/dL (31.8-35.4); Mean Corpuscular Volume 104.7 fl (81-99); Mean Platelet Volume 10.1 fl (7.4-10.4); Monocytes # 0.5 K/mm3 (0.1-1.0); Monocytes % 6.4 % (1.7-9.3); Neutrophils # 4.2 K/mm3 (1.8-7.8); Neutrophils % 52.8 % (37.0-80.0); Platelet Count 284 K/mm3 (142-424); Red Blood Count 4.17 M/mm3 (4.20-5.40); Red Cell Distribution Width 15.8 % (11.5-17.5)
[2024-01-02 19:40] LABS: Chloride 107 mmol/L (98-107); Potassium 3.5 mmoL/L (3.5-5.1); Sodium 140 mmol/L (136-145)
[2024-01-02 19:43] LABS: Alanine Aminotransferase 17 U/L (12-78); Albumin Level 4.2 g/dl (3.5-5.0); Albumin/Globulin Ratio 1.4 (1.1-1.8); Alkaline Phosphatase 68 U/L (38-126); Anion Gap 4.5 mEq/L (5-15); Aspartate Amino Transferase 32 U/L (14-36); Bilirubin,Total 1.1 mg/dl (0.2-1.3); Blood Urea Nitrogen 19 mg/dl (7-17); Calcium 10.1 mg/dl (8.4-10.2); Carbon Dioxide 32 mmol/L (22.0-30.0); Estimated Glomerular Filt Rate 53 ml/min (>60); GFR (African American) 64 ML/MIN (>60); Globulin 2.9 g/dL (1.3-3.2); Glucose 99 mg/dl (74-100); Total Protein,Serum 7.1 g/dl (6.3-8.2)
[2024-01-02 20:09] LABS: Thyroid Stimulating Hormone 3.51 uIU/mL (0.465-4.68)
[2024-01-02 21:38] LABS: Free T4 (Free Thyroxine) 1.84 ng/dl (0.78-2.19)
== END 2024-01-02 23:59 ==
LOC: LAB.DROPOF 21:08
PROVIDERS: PCP Nurse Practitioner; Visit Provider Nurse Practitioner
DX: I10 Essential (primary) hypertension (principal); E03.9 Hypothyroidism, unspecified
CPT/HCPCS: 80053; 84439; 84443; 85025

== ENCOUNTER 2024-01-03 15:18 | Emergency (ER) | payer MEDICARE, SELFPAY ==
[2024-01-03] VITALS (8 sets, daily range): BP systolic 157–178; BP diastolic 69–123; PULSE 68–80; RESP 16–20; TEMP 36.7–36.8; O2SAT 94–98; BMI 42.4
--- NOTE | 2024-01-03 15:43 | XR_ITS ---
FINAL REPORT TECHNIQUE: Single view chest CLINICAL HISTORY: high blood pressure, swelling FINDINGS: A single view of the chest was obtained. The heart and mediastinum are within normal limits. The lungs are clear. There is no pneumothorax. Osseous structures are unremarkable. IMPRESSION: No acute cardiopulmonary process. Reviewed, Interpreted and Dictated by Jesus Najera III, MD Transcribed by Yolanda Vogel Authenticated and [facility]
--- NOTE | 2024-01-03 15:43 | CT_ITS ---
FINAL REPORT CLINICAL HISTORY: headaches, visual disturbance, high blood pressure FINDINGS: Axial images of the head were obtained without contrast. Coronal reformatted images were also obtained. This study was performed with techniques to keep radiation doses as low as reasonably achievable (ALARA). Individualized dose reduction techniques using automated exposure control or adjustment of mA and/or kV according to the patient''s size were employed. There is generalized age-appropriate atrophy. Periventricular low-attenuation areas are seen consistent with mild chronic ischemic changes. There is no evidence of intracranial hemorrhage or mass. There is no evidence of acute infarct. There is no evidence of shift of the midline structures. No skull abnormality is seen on the bone window images. IMPRESSION: Atrophy and mild periventricular chronic ischemic changes. No acute intracranial abnormality identified. Reviewed, Interpreted and Dictated by Jesus Najera III, MD Transcribed by Yolanda Vogel Authenticated and [facility]
--- NOTE | 2024-01-03 16:03 | ECG_ITS ---
APPROVED REPORT Exam: Resting ECG HR:69 bpm ECG Measurements Heart Rate 69 AXES NE 196 P 42 QRSd 106 QRS -5 QT 393 T 45 QTc 411 Conclusion SINUS RHYTHM No STEMI Electronically signed by : JONATHAN JIMENES, 01/03/2024 21:21:25
[2024-01-03] MEDS: KETOROLAC 30MG/ML VIAL 15 MG IV (16:04)
[2024-01-03] MEDS: ACETAMINOPHEN 1,000MG/100ML VIAL 1000 MG IV (16:04)
--- NOTE | 2024-01-03 16:04 | HMH.EDGENADL ---
Discharge Plan Disposition Patient Disposition: Home, Self-Care Condition: Good Prescriptions Prescriptions: No Action allopurinol 100 mg tablet 200 mg PO DAILY Qty: 180 1RF amlodipine 10 mg tablet 10 mg PO DAILY Qty: 30 2RF lisinopril 20 mg tablet 20 mg PO DAILY Qty: 30 2RF aspirin [Adult Aspirin Regimen] 81 mg tablet,delayed release (DR/EC) 81 mg PO DAILY Qty: 30 2RF metoprolol succinate [Toprol XL] 25 mg tablet extended release 24 hr 25 mg PO QHS Qty: 30 5RF lisinopril-hydrochlorothiazide 20-25 mg tablet See Rx Instructions .ROUTE .COMPLEX Qty: 90 0RF Dose Instruction: TAKE 1 TABLET BY MOUTH DAILY FOR BLOOD PRESSURE Rx Instructions: TAKE 1 TABLET BY MOUTH DAILY FOR BLOOD PRESSURE levothyroxine 75 mcg tablet See Rx Instructions .ROUTE .COMPLEX Qty: 90 0RF Dose Instruction: TAKE 1 TABLET BY MOUTH DAILY FOR THYROID Rx Instructions: TAKE 1 TABLET BY MOUTH DAILY FOR THYROID citalopram 20 mg tablet See Rx Instructions .ROUTE .COMPLEX Qty: 90 0RF Dose Instruction: TAKE 1 TABLET BY MOUTH EVERY DAY FOR ANXIETY Rx Instructions: TAKE 1 TABLET BY MOUTH EVERY DAY FOR ANXIETY rosuvastatin [Crestor] 10 mg tablet 10 mg PO DAILY Qty: 30 11RF Referrals Follow up/Referrals: Alicia Crespo APRN [Primary Care Provider] - See instructions Activity Restrictions/Add. Instructions Additional Instructions/Restrictions: You were evaluated in the emergency department today. 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 Continue keeping a log of your blood pressures at home. 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 If you continue to have persistent headaches, you may benefit from referral to neurology. Return to the emergency department for new or worsening symptoms. Clinical Impressions Clinical Impression: High blood pressure, Headache Instructions Patient Instructions: DI for High Blood Pressure, DI for Headache Discharge ED Provider: Estela Gray General Adult HPI General Chief complaint: Recheck/Abnormal Lab/Rx Stated complaint: high blood pressure Time Seen by Provider: 01/03/24 15:24 Mode of Arrival: Wheelchair Source of Information: Patient and Relative Limitations: No Limitations Description of Symptoms (Recalled from ER Triage Doc. by RN): pt was sent over from cardiology for HTN and a severe KU. Upon arrival pt states she has had high blood pressure over the past four days. Her PCP started her on amlodipine besylate yesterday 5mg PO. Pt states her bp has not improved. pt states she has a severe KU 8/10 and sharp. pt states the pain is on the top of her head and the base of her skull. pt also reports feeling slight disoreinted. However, pt is A&Ox4 with a GCS of 15. pt denies taking any medications for the KU. pt denies other symptoms. pt NIH was 0 History of Present Illness HPI narrative: This patient is an 83-year-old female with a history of malignant hypertension, CAD, hyperlipidemia, and hypothyroidism presenting with concern for high blood pressure readings and headache. According to the patient, she went over to cardiology clinic today with blood pressure that had been in the 200s over 100s at home. She is also been having headaches with visual disturbance. She states that she feels like she has brain fog. She notes that they told her to come over to the ED for evaluation. She notes that they had given her information that they will add amlodipine 10 mg as well as increase lisinopril/HCTZ to 40/25 mg. Patient denies any other concerns, such chest pain, shortness of breath, or other issues. She does note that she has had some mild bilateral lower extremity edema, which is actually improved today. Her blood pressure upon arrival was 170 systolic. Related Data Previous Rx's Medication Instructions Recorded aspirin 81 mg tablet,delayed 81 mg PO DAILY #30 tabs 09/18/23 release (Adult Aspirin Regimen) metoprolol succinate 25 mg 25 mg PO QHS #30 tabs 09/18/23 tablet,extended release 24 hr (Toprol XL) allopurinol 100 mg tablet 200 mg (2 x 100 mg) PO DAILY 09/19/23 hyperuricemia #180 tabs citalopram 20 mg tablet See Rx Instructions .Route 11/13/23 .COMPLEX #90 tabs levothyroxine 75 mcg tablet See Rx Instructions .Route 11/13/23 .COMPLEX #90 tabs lisinopril 20 See Rx Instructions .Route 11/13/23 mg-hydrochlorothiazide 25 mg tablet .COMPLEX #90 tabs rosuvastatin 10 mg tablet (Crestor) 10 mg PO DAILY #30 tabs 12/13/23 amlodipine 10 mg tablet 10 mg PO DAILY #30 tabs 01/03/24 lisinopril 20 mg tablet 20 mg PO DAILY #30 tabs 01/03/24 Allergies Allergy/AdvReac Type Severity Reaction Status Date / Time adhesive tape Allergy Intermediate Blister Verified 01/03/24 14:44 ibuprofen Allergy Unknown Verified 01/03/24 14:44 allergy reaction [facility] Disclaimer: The information contained in this section may have been updated after the patient was seen, as this information can be updated by other users. Medical History Malignant hypertension Dyspnea Chest pain IFG (impaired fasting glucose) HTN (hypertension) Uterine cancer Pneumonia History of COVID-19 History of cataract Colon polyp Anxiety and depression Hyperlipidemia Hyperuricemia Acquired hypothyroidism Essential hypertension Surgical History H/O breast biopsy Status post left foot surgery History of colonoscopy (~2018) History of hysterectomy History of tonsillectomy History of hysterectomy (~2014) History of dental surgery Family History Other Cancer Diabetes Hypertension Social History Smoking Status: Never smoker years smoked: 2 smoking status stop date: 1977 alcohol intake: never substance use type: denies use current occupational status: retired Travel in the last 8 weeks: None caffeine: Yes ROS Obtained: Yes All systems reviewed & no additional complaints except as documented Physical Exam General General appearance: alert, in no apparent distress and obese Head Head exam: atraumatic and normocephalic Eye Eye exam: Present normal appearance, PERRL and EOMI ENT ENT exam: Present normal exam, normal oropharynx, mucous membranes moist and normal external ear exam Neck Neck exam: Present normal inspection, full ROM and trachea midline; Absent tenderness Chest Chest inspection: Present normal inspection and symmetric chest wall rise; Absent tenderness Respiratory Respiratory exam: Present normal lung sounds bilaterally; Absent respiratory distress, wheezes, stridor or accessory muscle use Cardiovascular Cardiovascular exam: Present regular rate and normal rhythm Abdominal Exam Abdominal exam: Present soft; Absent distention, tenderness or guarding Extremities Exam Extremities exam: Present full ROM, normal capillary refill and edema (Mild bilateral lower extremity edema); Absent tenderness Back Exam Back exam: Present normal inspection and full ROM; Absent tenderness Neurological Exam Neurological exam: Present alert, oriented X3, CN II-XII intact and normal gait; Absent motor sensory deficit Psychiatric Psychiatric exam: Present normal affect and normal mood Skin Skin exam: Present warm and dry Medical Decision Making Medical Records Medical records reviewed: Yes I reviewed the patient's medical records. Manish Inquiry Pt receiving controlled substance: No Vital Signs: 01/03/24 15:41 01/03/24 15:43 01/03/24 16:00 Temperature 98.3 F Temperature Source Oral Pulse Rate 79 Pulse Rate [Left] 80 Respiratory Rate 16 Blood Pressure 176/123 H Blood Pressure [Right Arm] 176/109 H 176/109 H Blood Pressure Mean Blood Pressure Mean [Right Arm] 131 131 Blood Pressure Source Blood Pressure Source [Right Arm] Automatic Cuff Blood Pressure Position Blood Pressure Position [Right Arm] Sitting 02 Sat by Pulse Oximetry 97 96 Oxygen Delivery Method Room Air Room Air 01/03/24 16:30 01/03/24 17:01 01/03/24 17:31 Temperature Temperature Source Pulse Rate 75 71 68 Pulse Rate [Left] Respiratory Rate Blood Pressure 178/87 H 157/69 H 162/75 H Blood Pressure [Right Arm] Blood Pressure Mean 120 104 Blood Pressure Mean [Right Arm] Blood Pressure Source Blood Pressure Source [Right Arm] Blood Pressure Position Blood Pressure Position [Right Arm] 02 Sat by Pulse Oximetry 96 94 L 95 Oxygen Delivery Method 01/03/24 18:01 01/03/24 18:28 Temperature 98.0 F Temperature Source Oral Pulse Rate 76 78 Pulse Rate [Left] Respiratory Rate 20 Blood Pressure 157/77 H 157/77 H Blood Pressure [Right Arm] Blood Pressure Mean 94 Blood Pressure Mean [Right Arm] Blood Pressure Source Automatic Cuff Blood Pressure Source [Right Arm] Blood Pressure Position Sitting Blood Pressure Position [Right Arm] 02 Sat by Pulse Oximetry 98 Oxygen Delivery Method Room Air Lab Data Lab results reviewed: Yes I reviewed the patient's lab results. Lab Results 01/03/24 15:52: WBC 9.0, RBC 4.27, Hgb 14.2, Hct 43.7, MCV 102.3 H, MCH 33.3 H, MCHC 32.5, RDW 15.9, Plt Count 276, MPV 8.9, Neut % (Auto) 50.2, Lymph % (Auto) 34.6, Riley % (Auto) 6.4, Eos % (Auto) 7.3, Baso % (Auto) 1.6, Neut # (Auto) 4.5, Lymph # (Auto) 3.1, Riley # (Auto) 0.6, Eos # (Auto) 0.7 H, Baso # (Auto) 0.1, Sodium 139, Potassium 3.8, Chloride 104, Carbon Dioxide 31 H, Anion Gap 7.8, BUN 21 H, Creatinine 1.00, Estimated Creat Clear 38, Estimated GFR 53 L, Est GFR ( Amer) 64, Glucose 114 H, Calcium 10.0, Total Bilirubin 1.2, AST 40 H, ALT 21, Alkaline Phosphatase 50, Troponin I < 0.01, NT-Pro-B Natriuret Pep 1170 H, Total Protein 7.5, Albumin 4.4, Globulin 3.1, Albumin/Globulin Ratio 1.4, TSH 2.70, Thyroxine (T4) 10.9 01/03/24 16:00: SARS-CoV-2 (PCR) Not detected, Influenza A Untype (PCR) Not detected, Influenza Type B (PCR) Not detected 01/03/24 15:52 01/03/24 15:52 Orders (Tests/Meds): ED MEDICATIONS Discontinued Medications Generic Name Dose Route Start Last Admin Trade Name Marcelq PRN Reason Stop Dose Admin Acetaminophen 1,000 mg 01/03/24 15:43 01/03/24 16:04 Acetaminophen 1,000mg/100ml Vial IV 01/03/24 15:44 1,000 mg ONCE ONE Administration Amlodipine Besylate 10 mg 01/03/24 17:00 01/03/24 17:22 Amlodipine 10mg Tablet PO 01/03/24 17:01 10 mg ONCE ONE Administration Ketorolac Tromethamine 15 mg 01/03/24 15:43 01/03/24 16:04 Ketorolac 30mg/Ml Vial IV 01/03/24 15:44 15 mg ONCE ONE Administration Lisinopril 20 mg 01/03/24 16:59 01/03/24 17:21 Lisinopril 20mg Tablet PO 01/03/24 17:00 20 mg ONCE ONE Administration ORDERS Category Date Time Status CT head/brain wo con Stat Cat Scan 01/03/24 15:43 Completed XR chest portable Stat Exams 01/03/24 15:43 Completed Brain Natriuretic Peptide Stat Lab 01/03/24 15:52 Completed Complete Blood Count Auto Diff Stat Lab 01/03/24 15:52 Completed Comprehensive Metabolic Panel Stat Lab 01/03/24 15:52 Completed Rapid PCR Covid and Flu A/B Stat Lab 01/03/24 16:00 Completed T4 (Thyroxine) Stat Lab 01/03/24 15:52 Completed Thyroid Stimulating Hormone Stat Lab 01/03/24 15:52 Completed Troponin I Stat Lab 01/03/24 15:52 Completed ECG Data Tracing #1: I reviewed this ECG and interpreted as documented below: Normal sinus rhythm with a ventricular rate of [address] elevations concerning for ischemia. Normal axis and intervals. ECG initial impression date: 01/03/24 ECG initial impression time: 16:04 Medical Decision Narrative: In summary, this patient is a 83-year-old female presenting to the Emergency Department for evaluation of high blood pressure, headaches, and leg swelling. Differential diagnoses considered include but are not limited to hypertensive emergency, hypertensive urgency, intracranial mass, intracranial hemorrhage, CVA. Ruling out the most morbid conditions drove assessment. On exam, the patient is well-appearing is completely neurologically intact. NIH stroke scale is 0. She is hypertensive with systolics in the 170s on clinical exam, however vital signs are otherwise reassuring. EKG obtained is reassuring. Workup included CBC, CMP, troponin, chest x-ray, and CT head without contrast. Patient was given IV Toradol and acetaminophen for symptomatic improvement of headache. I independently interpreted CT scan and x-ray prior to the radiologist read and noted no focal area of ischemia, no acute intracranial masses that I can visualize, and no obvious intracranial hemorrhage. Please see their read for final interpretation. Labs were obtained that demonstrated normal kidney function and no other acutely concerning abnormalities. On reassessment, patient had great improvement after administration of headache and blood pressure after administration of Tylenol and Toradol. Her blood pressure is now 140s to 150s systolic. She is completely neurologically intact still. Labs obtained are reassuring without MARSHA or elevated troponin. She does have mildly elevated BNP at 1170 with bilateral lower extremity edema, but she has no significant pulmonary edema or respiratory failure. At this time, I decided to administer her increased prescription of lisinopril 20 mg as well as amlodipine 10 mg. On multiple subsequent reassessments, the patient is resting comfortably and is neurologically intact with improved blood pressure. She remains neurologically intact and is well-appearing on exam. I do feel that she is appropriate for discharge home with close follow-up with her primary care provider, which is already arranged tomorrow. She also already has close follow-up arranged with cardiology. Strict return precautions were given, and she already has prescriptions for her increased blood pressure medications at home. The patient was discharged in stable condition after all questions were answered. Critical Care Critical Care Time Critical Care Time: No
[2024-01-03 16:05] LABS: Basophils # 0.1 K/mm3 (0-0.2); Basophils % 1.6 % (0.1-2.0); Eosinophils # 0.7 K/mm3 (0.0-0.4); Eosinophils % 7.3 % (0.1-12.0); Hematocrit 43.7 % (37.0-47.0); Hemoglobin 14.2 g/dL (12.2-16.2); Lymphocytes # 3.1 K/mm3 (0.7-4.5); Lymphocytes % 34.6 % (10-50); Mean Corpuscular HGB Conc 32.5 g/dL (31.8-35.4); Mean Corpuscular Hemoglobin 33.3 pg (27.0-31.2); Mean Corpuscular Volume 102.3 fl (81-99); Mean Platelet Volume 8.9 fl (7.4-10.4); Monocytes # 0.6 K/mm3 (0.1-1.0); Monocytes % 6.4 % (1.7-9.3); Neutrophils # 4.5 K/mm3 (1.8-7.8); Neutrophils % 50.2 % (37.0-80.0); Platelet Count 276 K/mm3 (142-424); Red Blood Count 4.27 M/mm3 (4.20-5.40); Red Cell Distribution Width 15.9 % (11.5-17.5)
[2024-01-03 16:06] LABS: Chloride 104 mmol/L (98-107); Potassium 3.8 mmoL/L (3.5-5.1); Sodium 139 mmol/L (136-145)
[2024-01-03 16:07] LABS: Coronavirus 19, PCR Not Detected (NotDetected); Influenza A, PCR Not Detected (NotDetected); Influenza B, PCR Not Detected (NotDetected)
[2024-01-03 16:08] LABS: Blood Urea Nitrogen 21 mg/dl (7-17); Creatinine Clearance Estimated 38 mL/min (50-200); Estimated Glomerular Filt Rate 53 ml/min (>60); GFR (African American) 64 ML/MIN (>60)
[2024-01-03 16:09] LABS: Alanine Aminotransferase 21 U/L (12-78); Albumin Level 4.4 g/dl (3.5-5.0); Albumin/Globulin Ratio 1.4 (1.1-1.8); Alkaline Phosphatase 50 U/L (38-126); Anion Gap 7.8 mEq/L (5-15); Aspartate Amino Transferase 40 U/L (14-36); Bilirubin,Total 1.2 mg/dl (0.2-1.3); Carbon Dioxide 31 mmol/L (22.0-30.0); Globulin 3.1 g/dL (1.3-3.2); Glucose 114 mg/dl (74-100); Total Protein,Serum 7.5 g/dl (6.3-8.2)
[2024-01-03 16:19] LABS: NT Pro Brain Natriuretic Pep. 1170 pg/mL (0-450)
[2024-01-03 16:22] LABS: Troponin I < 0.01 ng/ml (0.00-0.034)
[2024-01-03 16:26] LABS: T4 (Thyroxine) 10.9 ug/dl (5.53-11.0)
--- NOTE | 2024-01-03 17:08 | PC.NURSE ---
called Mariana seth
[2024-01-03] MEDS: LISINOPRIL 20MG TABLET 20 MG PO (17:21)
[2024-01-03] MEDS: AMLODIPINE 10MG TABLET 10 MG PO (17:22)
--- NOTE | 2024-01-03 17:27 | PC.NURSE ---
Rounded on patient , patient given water at this time.
== END 2024-01-03 18:29 | disposition home or self-care (01) ==
PROVIDERS: Emergency Provider Emergency Medicine; PCP Nurse Practitioner
DX: R51.9 Headache, unspecified (principal); I10 Essential (primary) hypertension; I25.10 Atherosclerotic heart disease of native coronary artery without angina pectoris; E78.5 Hyperlipidemia, unspecified; E03.9 Hypothyroidism, unspecified; H53.8 Other visual disturbances; Z85.42 Personal history of malignant neoplasm of other parts of uterus
CPT/HCPCS: 70450; 71045; 80053; 83880; 84436; 84443; 84484; 85025; 87636; 93005; 96374; 96375; 99285; J0131

== ENCOUNTER 2024-01-04 19:04 | Outpatient (CLI) | payer MEDICARE, SELFPAY | END 2024-01-04 23:59 | LOC: LAB.DROPOF 19:04 | PROVIDERS: PCP Nurse Practitioner; Visit Provider Nurse Practitioner | DX: R39.198 Other difficulties with micturition (principal); R51.9 Headache, unspecified | CPT/HCPCS: 87086 ==

== ENCOUNTER 2024-01-19 08:18 | Outpatient (CLI) | payer MEDICARE, SELFPAY ==
--- NOTE | 2024-01-19 08:21 | CA_ITS ---
FINAL REPORT TECHNIQUE: Grayscale, color Doppler and duplex Doppler ultrasound of the kidneys, aorta and renal arteries was performed. Multiple velocities were measured. CLINICAL HISTORY: HTN COMPARISON: None FINDINGS: Aorta velocity: 149.2 cm/sec Right kidney: 10.3 cm. No evidence of hydronephrosis or mass. Right intrarenal RI: 0.79 Right renal artery velocity: 135 cm/sec. Right RAR (Renal artery-Aortic Ratio): 0.9 Left Kidney: 8.6 cm. No evidence of hydronephrosis or mass. Left intrarenal RI: 0.76 Left renal artery velocity: 158 cm/sec. Left RAR (Renal Artery-Aortic Ratio): 1.06 IMPRESSION: No evidence of significant renal artery stenosis. CT angiogram or postcontrast MR angiogram would be more sensitive for evaluation of possible renal artery stenosis. Reviewed, Interpreted and Dictated by Jesus Najera III, MD Transcribed by Marleny Biswas Authenticated and [facility]
--- NOTE | 2024-01-19 08:46 | US_ITS ---
FINAL REPORT CLINICAL HISTORY: I10 - Essential (primary) hypertension COMPARISON: None FINDINGS: RENAL ULTRASOUND: The right kidney measures 9.4 cm in length. No evidence of mass or hydronephrosis is seen. The left kidney measures 9.1 cm in length. Once again, there is no evidence of mass or hydronephrosis. No perinephric fluid collections are present. IMPRESSION: Unremarkable renal ultrasound. Reviewed, Interpreted and Dictated by Jesus Najera III, MD Transcribed by Marleny Biswas Authenticated and [facility]
== END 2024-01-19 23:59 ==
LOC: RT 08:19
PROVIDERS: PCP Nurse Practitioner; Visit Provider Nurse Practitioner Family
DX: I10 Essential (primary) hypertension (principal)
CPT/HCPCS: 76770; 93976

== ENCOUNTER 2024-02-20 10:32 | Outpatient (CLI) | payer MEDICARE, SELFPAY | END 2024-02-20 23:59 | disposition home or self-care (01) | LOC: RT 10:34 | PROVIDERS: PCP Nurse Practitioner; Visit Provider Nurse Practitioner | DX: R00.0 Tachycardia, unspecified (principal) | CPT/HCPCS: 93225 ==

== ENCOUNTER 2024-03-25 18:00 | Outpatient (CLI) | payer MEDICARE, SELFPAY ==
[2024-03-25 18:12] LABS: Basophils # 0.1 K/mm3 (0-0.2); Eosinophils # 0.9 K/mm3 (0.0-0.4); Eosinophils % 8.1 % (0.1-12.0); Hematocrit 46.1 % (37.0-47.0); Hemoglobin 14.6 g/dL (12.2-16.2); Lymphocytes % 28.8 % (10-50); Mean Corpuscular HGB Conc 31.6 g/dL (31.8-35.4); Mean Corpuscular Hemoglobin 32.4 pg (27.0-31.2); Mean Corpuscular Volume 102.6 fl (81-99); Mean Platelet Volume 10.1 fl (7.4-10.4); Monocytes # 0.5 K/mm3 (0.1-1.0); Monocytes % 5.2 % (1.7-9.3); Platelet Count 319 K/mm3 (142-424); Red Cell Distribution Width 14.9 % (11.5-17.5); White Blood Count 10.5 K/mm3 (4.8-10.8)
[2024-03-25 18:21] LABS: Chloride 104 mmol/L (98-107)
[2024-03-25 18:22] LABS: Potassium 4.6 mmoL/L (3.5-5.1); Sodium 137 mmol/L (136-145)
[2024-03-25 18:24] LABS: Alanine Aminotransferase 30 U/L (12-78); Alkaline Phosphatase 66 U/L (38-126); Anion Gap 11.6 mEq/L (5-15); Aspartate Amino Transferase 39 U/L (14-36); Bilirubin,Total 0.6 mg/dl (0.2-1.3); Blood Urea Nitrogen 27 mg/dl (7-17); Carbon Dioxide 26 mmol/L (22.0-30.0); Estimated Glomerular Filt Rate 39 ml/min (>60); GFR (African American) 48 ML/MIN (>60)
[2024-03-25 18:25] LABS: Albumin Level 4.4 g/dl (3.5-5.0); Albumin/Globulin Ratio 1.5 (1.1-1.8); Cholesterol 143 mg/dl (140-200); Creatine Kinase 61 U/L (30-135); Glucose 99 mg/dl (74-100); HDL Cholesterol 48 mg/dl (40-60); Total Protein,Serum 7.4 g/dl (6.3-8.2); Triglycerides 167 mg/dl (30-150); VLDL Cholesterol 33 mg/dL (0-40)
[2024-03-25 18:40] LABS: Free T4 (Free Thyroxine) 1.58 ng/dl (0.78-2.19)
[2024-03-25 18:53] LABS: Thyroid Stimulating Hormone 2.28 uIU/mL (0.465-4.68)
[2024-03-25 18:57] LABS: 25-OH Vitamin D, Total 70.8 ng/mL (30-100)
[2024-03-25 19:26] LABS: Hemoglobin A1C 6.2 % (4.0-6.0)
[2024-03-25 21:44] LABS: Vitamin B12 887 pg/mL (239-931)
== END 2024-03-25 23:59 | disposition home or self-care (01) ==
LOC: LAB.DROPOF 03-26 09:51
PROVIDERS: PCP Nurse Practitioner; Visit Provider Nurse Practitioner
DX: E78.5 Hyperlipidemia, unspecified (principal); E03.9 Hypothyroidism, unspecified; M79.10 Myalgia, unspecified site; R73.01 Impaired fasting glucose; I10 Essential (primary) hypertension
CPT/HCPCS: 80050; 80053; 80061; 82306; 82550; 82607; 83036; 84439; 84443; 85025

== ENCOUNTER 2024-04-08 19:20 | Outpatient (CLI) | payer MEDICARE, SELFPAY ==
[2024-04-08 22:01] LABS: Chloride 106 mmol/L (98-107); Sodium 137 mmol/L (136-145)
[2024-04-08 22:02] LABS: Potassium 4.6 mmoL/L (3.5-5.1)
[2024-04-08 22:04] LABS: Blood Urea Nitrogen 36 mg/dl (7-17); Estimated Glomerular Filt Rate 39 ml/min (>60); GFR (African American) 47 ML/MIN (>60)
[2024-04-08 22:05] LABS: Anion Gap 12.6 mEq/L (5-15); Calcium 10.4 mg/dl (8.4-10.2); Carbon Dioxide 23 mmol/L (22.0-30.0); Glucose 81 mg/dl (74-100)
== END 2024-04-08 23:59 | disposition home or self-care (01) ==
PROVIDERS: PCP Nurse Practitioner; Visit Provider Nurse Practitioner
DX: N28.9 Disorder of kidney and ureter, unspecified (principal)
CPT/HCPCS: 80048

== ENCOUNTER 2024-05-27 10:29 | Outpatient (CLI) | payer MEDICARE, SELFPAY ==
[2024-05-27 20:21] LABS: Creatinine,Urine Random 231 mg/dL (Not Estab.); Microalbumin/Creatinine Ratio 16.3
[2024-05-27 21:52] LABS: Alanine Aminotransferase 24 U/L (12-78); Albumin Level 4.2 g/dl (3.5-5.0); Albumin/Globulin Ratio 1.4 (1.1-1.8); Alkaline Phosphatase 56 U/L (38-126); Anion Gap 11.8 mEq/L (5-15); Aspartate Amino Transferase 36 U/L (14-36); Blood Urea Nitrogen 28 mg/dl (7-17); Calcium 10.2 mg/dl (8.4-10.2); Carbon Dioxide 24 mmol/L (22.0-30.0); Chloride 106 mmol/L (98-107); Chol/HDL Ratio 2.7 (1-3.5); Cholesterol 129 mg/dl (140-200); Estimated Glomerular Filt Rate 43 ml/min (>60); GFR (African American) 52 ML/MIN (>60); Globulin 2.9 g/dL (1.3-3.2); Glucose 101 mg/dl (74-100); HDL Cholesterol 48 mg/dl (40-60); Potassium 3.8 mmoL/L (3.5-5.1); Sodium 138 mmol/L (136-145); Total Protein,Serum 7.1 g/dl (6.3-8.2); Triglycerides 129 mg/dl (30-150); VLDL Cholesterol 26 mg/dL (0-40)
[2024-05-27 22:21] LABS: Hemoglobin A1C 5.9 % (4.0-6.0)
== END 2024-05-27 23:59 | disposition home or self-care (01) ==
LOC: LAB.DROPOF 05-28 15:05
PROVIDERS: PCP Nurse Practitioner; Visit Provider Nurse Practitioner
DX: I10 Essential (primary) hypertension (principal); E79.0 Hyperuricemia without signs of inflammatory arthritis and tophaceous disease; E78.5 Hyperlipidemia, unspecified; R73.01 Impaired fasting glucose
CPT/HCPCS: 80053; 80061; 82043; 82570; 83036; 84550

== ENCOUNTER 2024-05-28 10:34 | Outpatient (CLI) | payer MEDICARE, SELFPAY ==
--- NOTE | 2024-05-28 10:38 | XR_ITS ---
FINAL REPORT CLINICAL HISTORY: mid-line low back pain with left-sided sciatica COMPARISON: None FINDINGS: AP and lateral views of the lumbar spine were obtained. There is no prior exam for comparison. There is no acute fracture. Levoscoliosis is noted. Vertebral body height is preserved. Moderate and severe degenerative change is present. Multilevel facet arthropathy is present as well as mild vascular calcifications. No acute paraspinal abnormality. IMPRESSION: Degenerative change as described above, without acute bony abnormality identified. Reviewed, Interpreted and Dictated by Jesus Najera III, MD Transcribed by Marleny Biswas Authenticated and [facility]
== END 2024-05-28 23:59 | disposition home or self-care (01) ==
LOC: RAD 10:36
PROVIDERS: PCP Nurse Practitioner; Visit Provider Nurse Practitioner
DX: M54.42 Lumbago with sciatica, left side (principal)
CPT/HCPCS: 72100

== ENCOUNTER 2024-08-26 11:38 | Outpatient (CLI) | payer MEDICARE, SELFPAY ==
[2024-08-26 19:58] LABS: Alanine Aminotransferase 22 U/L (12-78); Albumin Level 4.8 g/dl (3.5-5.0); Albumin/Globulin Ratio 1.7 (1.1-1.8); Alkaline Phosphatase 52 U/L (38-126); Anion Gap 16.6 mEq/L (5-15); Aspartate Amino Transferase 32 U/L (14-36); Bilirubin,Total 0.9 mg/dl (0.2-1.3); Blood Urea Nitrogen 51 mg/dl (7-17); Carbon Dioxide 22 mmol/L (22.0-30.0); Chloride 103 mmol/L (98-107); Estimated Glomerular Filt Rate 36 ml/min (>60); GFR (African American) 44 ML/MIN (>60); Globulin 2.9 g/dL (1.3-3.2); Glucose 91 mg/dl (74-100); Potassium 4.6 mmoL/L (3.5-5.1); Sodium 137 mmol/L (136-145); Total Protein,Serum 7.7 g/dl (6.3-8.2)
[2024-08-26 20:25] LABS: Free T4 (Free Thyroxine) 1.87 ng/dl (0.78-2.19)
[2024-08-26 21:46] LABS: Thyroid Stimulating Hormone 0.83 uIU/mL (0.465-4.68)
[2024-08-26 22:45] LABS: Hemoglobin A1C 5.9 % (4.0-6.0)
== END 2024-08-26 23:59 | disposition home or self-care (01) ==
LOC: LAB.DROPOF 08-27 09:25
PROVIDERS: PCP Nurse Practitioner; Visit Provider Nurse Practitioner
DX: E03.9 Hypothyroidism, unspecified (principal); N28.9 Disorder of kidney and ureter, unspecified; R73.01 Impaired fasting glucose
CPT/HCPCS: 80053; 83036; 84439; 84443

== ENCOUNTER 2024-09-16 10:33 | Outpatient (CLI) | payer MEDICARE, SELFPAY ==
[2024-09-16 19:15] LABS: Anion Gap 15.7 mEq/L (5-15); Blood Urea Nitrogen 42 mg/dl (7-17); Carbon Dioxide 22 mmol/L (22.0-30.0); Chloride 104 mmol/L (98-107); Estimated Glomerular Filt Rate 31 ml/min (>60); GFR (African American) 37 ML/MIN (>60); Glucose 88 mg/dl (74-100); Potassium 4.7 mmoL/L (3.5-5.1); Sodium 137 mmol/L (136-145)
== END 2024-09-16 23:59 | disposition home or self-care (01) ==
LOC: LAB.DROPOF 09-18 10:34
PROVIDERS: PCP Nurse Practitioner; Visit Provider Nurse Practitioner
DX: N18.9 Chronic kidney disease, unspecified (principal)
CPT/HCPCS: 80048

== ENCOUNTER 2024-09-26 09:00 | Outpatient (RCR) | payer MEDICARE, SELFPAY ==
--- NOTE | 2024-09-02 10:37 | HMH.PTOPEV ---
PT Outpatient Evaluation Rehab PT Outpatient Evaluation Start: 09/02/24 09:46 Freq: Status: Active Protocol: Document 09/02/24 10:23 BHAVANILI (Rec: 09/02/24 10:37 ARIK [id number]) E-signed By Rene Kelly, PT Outpatient Therapy Subjective History Subjective History The pt is an 84 yof who presents to [facility] outpatient PT with complaints of L sided LBP that has been ongoing for ~ 6 months of insidious onset. She reports that the pain seems to have progressively gotten worse since then. She reports that she has muscle spasms on her L side almost daily and when the pain hits she almost falls. She reports that she does have balance issues, but she has not fallen in the past year. She reports that the pain seems to be at its worse when she walks for longer distances, such as the grocery store. 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 She reports that ice seems to help calm the pain and her PCP recommended a TENS unit, which also has helped some. she reports she takes a muscle relaxant, which doesnt seem to do much. She reports that she sleeps on her L side because that is the only position of comfort. New diagnosis of cancer in past 12 No months? Chief Complaint Pain,Spasms Symptom Type Sharp,Shooting Symptoms Relieved By Rest/Positioning,Ice Symptoms Aggravated By Supine,Sitting,Bending/ Stooping,Twisting,Walking, Lifting Prior Functional Limitations None,Balance Current Functional Limitations Lifting,Housework,Dressing, Sleeping,Standing,Squatting, Walking,Stairs,Balance Symptom Description Constant but Variable Level of pain today (0-10) 7 Pain scale - at its best (0-10) 3 Pain scale - at its worst (0-10) 10 Lumbopelvic Eval Posture Thoracic Spine Posture Standing Position Neutral Lumbar Spine Posture Standing Position Neutral Assistive device Assistive Devices None / NA Gait Observation General Gait Pattern Observation Wide Based Gait Palapation tenderness left lumbar spinal tenderness Yes: Tenderness 3/4 and TrP on left lumbar paraspinals and L oblique paraspinal tenderness Yes Lumbar/Sacral Palpation Findings Tenderness,Spasm,Trigger Point Accessory Movement L2 left L3 left L4 left Range of Motion Lumbar Spine Active Flexion Range of 25% Motion (degrees) Lumbar Spine Active Extension Range of 0% Motion (degrees) Left Lumbar Spine Lateral Flexion Active 100% Range of Motion (degrees) Right Lumbar Spine Lateral Flexion 25% Active Range of Motion (degrees) Lumbar Spine ROM Limitations Soft Tissue Tightness,Pain Manual Muscle Test Bilateral Knee Extension Strength Grade 3+ Fair+ Knee Flexion Strength Grade 3+ Fair+ Hip Flexion Strength Grade 3 Fair Hip Abduction Strength Grade 2 Poor Gluteus Daniele Strength Grade 2 Poor DTR Rt Patellar 2+ Lt Patellar 2+ Rt Gastroc/Soleus 2+ Lt Gastroc/Soleus 2+ Special Tests Forward Bending Test- Standing Positive Left Hip Scouring (Quadrant) Test Negative Left,Negative Right Hip Pedrito (XI) Test Positive Left,Positive Right Unilateral Straight Leg Raise (Lasegue) Negative Left,Negative Right Test Bilateral Straight Leg Raise Test Negative Sacroiliac Joint Compression Test Negative Left,Negative Right Sacroiliac Joint Distraction Test Negative Left,Negative Right Oswestry Index Section 1 Pain Intensity The pain is severe and does not vary much Section 2 Personal Care (Washing,Dresing) my way of washing or dressing even though it causes some pain Section 3 Lifting I can only lift very light weights at most Section 4 Walking I cannot walk at all without increasing pain Section 5 Sitting Pain prevents me from sitting for more than one hour Section 6 Standing I cannot stand more than 10 minutes without increasing pain Section 7 Sleeping Because of my pain, my normal night's sleep is less than 6 hours sleep Section 8 Social Life My social life is normal but increases the degree of pain Section 9 Traveling I get extra pain while traveling, but it does not compel me to seek al Section 10 Changing Degreee of Pain My pain is neither getting better or worse Score and Risk Level Oswestry Sc 30 Oswestry Risk Level Severe Disability Outpatient Therapy Assessment Impairments Problems/Impairmments Palpation Tenderness,Impaired Range of Motion,Impaired Strength,Impaired Standing, Impaired Sitting,Impaired Lifting,Impaired Household Care,Impaired Squatting, Subjective C/O Pain Prognosis Rehab Potential Good Clinical Impression Consistent with Diagnosis Yes Short Term Goals Number of Weeks 4 Decreased Palpation Tenderness Yes: 2/4 to Lumbar Paraspinals Increase Range of Motion Yes: 50% WNL Increase Strength Yes: 3+/5 to Hip and knee Increase Ability to Stand Yes: 30 minutes 4/10 pain Increase Ability to Sit Yes: 1 hour 4/10 pain Improve Ability For Household Care Yes: 4/10 pain Improve Oswestry Score Yes: moderate disability Decrease Subjective C/O Pain Yes: 7/10 at worst Patient to be Ind w/ HEP Yes Bobbin Drier Goals Number of Weeks 8 Decreased Palpation Tenderness Yes: 0/4 to lumbar paraspinals Increase Range of Motion Yes: 75% WNL Increase Strength Yes: 4/5 to hip/knee Increase Ability to Walk Yes: 1/4 mile with 3/10 pain Increase Ability to Stand Yes: 1 hour 2/10 pain Improve Oswestry Score Yes: mild disability Decrease Subjective C/O Pain Yes: 4/10 at worst Patient to be Ind w/ Advanced HEP Yes Outpatient Therapy Plan of Care Treatment Plan May Include Therapeutic Exercise Including Home Yes Exercise Program Manual Therapy Techniques Yes Neuromuscular Re-education Yes Therapeutic Activities to Return to Yes Previous Functional/Work Level Gait Training Yes ADL/Self Care Education Yes Mechanical Traction Yes Dry Needling Yes Thermal Modalities Yes Electrical Stimulation Yes Ultrasound/Phonophoresis Yes Massage Yes Eval/Re-Eval Yes Aquatic Therapy Yes Frequency Times per week 2-3 Duration Number of Weeks 8 Addendums This patient is a candidate for social No or vocational rehab? Patient/Guardian verbally acknowledges Yes understanding of treatment program and consents to further treatment? Patient/Guardian verbally acknowledges Yes understanding of diagnosis, prognosis and goals for treatment? Eval Complexity PT Charges 31328 - Moderate Complexity Shoulder/Elbow Eval Shoulder Objective Measurements Elbow Objective Measurements PHYSICIAN CERTIFICATION: I certify the specified therapy services for Julien Portillo are required, authorized, and reviewed every 30 days.
== END 2024-09-26 23:59 | disposition home or self-care (01) ==
LOC: PT 09:00
PROVIDERS: PCP Nurse Practitioner; Visit Provider Nurse Practitioner
DX: M51.369 Other intervertebral disc degeneration, lumbar region without mention of lumbar back pain or lower extremity pain (principal)
CPT/HCPCS: 97010; 97014; 97110; 97140; 97163; 97530; G0283

== ENCOUNTER 2024-10-02 13:20 | Outpatient (CLI) | payer MEDICARE, SELFPAY ==
--- NOTE | 2024-10-02 13:22 | MR_ITS ---
FINAL REPORT TECHNIQUE: Multiplanar MR without gadolinium enhancement CLINICAL HISTORY: lumbar degenerative disc disease COMPARISON: None FINDINGS: Sagittal images show normal vertebral height. Moderate levoscoliosis is present. There is grade 1 anterolisthesis of L4 on L5. Marrow signal pattern is unremarkable. T12-L1: A mild annular bulge is present with moderate facet overgrowth but no central canal stenosis. L1-2: A mild annular disc bulge is present, with moderate facet arthropathy and mild bilateral neural foraminal narrowing. L2-3: A mild annular bulge is present with moderate facet arthropathy, mild bilateral neural foraminal narrowing without central canal stenosis. L3-4: A moderate annular bulge is present with advanced facet arthropathy, moderate central canal stenosis, and moderate to severe bilateral neural foraminal narrowing. L4-5: A mild annular bulge is present with severe facet overgrowth, severe central canal stenosis, and moderate bilateral neural foraminal narrowing. L5-S1: A mild annular bulge is present with advanced facet arthropathy, mild central canal stenosis, and mild neural foraminal narrowing. IMPRESSION: Multilevel cervical degenerative change, most severe at the L3-4 and L4-5 levels as described. Reviewed, Interpreted and Dictated by Stephen Galvin MD Transcribed by Marleny Biswas Authenticated and [facility]
== END 2024-10-02 23:59 | disposition home or self-care (01) ==
LOC: RAD 13:22
PROVIDERS: PCP Nurse Practitioner; Visit Provider Nurse Practitioner
DX: M51.369 Other intervertebral disc degeneration, lumbar region without mention of lumbar back pain or lower extremity pain (principal)
CPT/HCPCS: 72148

== ENCOUNTER 2024-12-16 11:25 | Outpatient (CLI) | payer MEDICARE, OTHER, SELFPAY ==
[2024-12-16 22:02] LABS: Hemoglobin A1C 5.6 % (4.0-6.0)
[2024-12-16 22:27] LABS: Microalbumin/Creatinine Ratio 6.3
[2024-12-16 22:43] LABS: Creatinine,Urine Random 121 mg/dL (Not Estab.)
[2024-12-16 23:02] LABS: Alanine Aminotransferase 18 U/L (12-78); Albumin Level 4.7 g/dl (3.5-5.0); Albumin/Globulin Ratio 2.1 (1.1-1.8); Alkaline Phosphatase 55 U/L (38-126); Anion Gap 13.8 mEq/L (5-15); Aspartate Amino Transferase 26 U/L (14-36); Bilirubin,Total 0.6 mg/dl (0.2-1.3); Blood Urea Nitrogen 32 mg/dl (7-17); Calcium 10.5 mg/dl (8.4-10.2); Carbon Dioxide 24 mmol/L (22.0-30.0); Chloride 107 mmol/L (98-107); Chol/HDL Ratio 2.3 (1-3.5); Cholesterol 121 mg/dl (140-200); Estimated Glomerular Filt Rate 48 ml/min (>60); GFR (African American) 58 ML/MIN (>60); Globulin 2.2 g/dL (1.3-3.2); Glucose 88 mg/dl (74-100); HDL Cholesterol 53 mg/dl (40-60); Potassium 4.8 mmoL/L (3.5-5.1); Sodium 140 mmol/L (136-145); Total Protein,Serum 6.9 g/dl (6.3-8.2); Triglycerides 115 mg/dl (30-150); Uric Acid 4.6 mg/dl (2.5-6.2); VLDL Cholesterol 23 mg/dL (0-40)
[2024-12-16 23:12] LABS: Direct LDL Cholesterol 42.76 mg/dL (100-129)
[2024-12-16 23:25] LABS: Free T4 (Free Thyroxine) 1.79 ng/dl (0.78-2.19)
[2024-12-16 23:51] LABS: Vitamin B12 733 pg/mL (239-931)
== END 2024-12-16 23:59 | disposition home or self-care (01) ==
LOC: LAB.DROPOF 12-18 16:18
PROVIDERS: PCP Nurse Practitioner; Visit Provider Nurse Practitioner
DX: R73.01 Impaired fasting glucose (principal); I10 Essential (primary) hypertension; E03.9 Hypothyroidism, unspecified; E78.5 Hyperlipidemia, unspecified; E79.0 Hyperuricemia without signs of inflammatory arthritis and tophaceous disease
CPT/HCPCS: 80053; 80061; 82043; 82570; 82607; 83036; 84439; 84443; 84550

== ENCOUNTER 2025-01-21 09:24 | Outpatient (CLI) | payer MEDICARE, OTHER, SELFPAY ==
--- NOTE | 2025-01-21 09:24 | MR_ITS ---
FINAL REPORT TECHNIQUE: Multiplanar MR without contrast CLINICAL HISTORY: left flank pain, scoliosis, thoracic DDD LEFT SIDED BACK PAIN NO KNOWN INJURY FINDINGS: The vertebral heights are normal. Marrow signal pattern is unremarkable. There is questionable minimal dextroscoliosis. Alignment is otherwise normal. Thoracic spinal cord shows a normal MR appearance. There are mild annular disc bulges throughout the thoracic spine without canal stenosis or nerve root compression. IMPRESSION: No fracture. Mild multilevel degenerative disc changes without canal stenosis or nerve root compression. Reviewed, Interpreted and Dictated by Stephen Galvin MD Transcribed by Sarah Lee Authenticated and [facility]
== END 2025-01-21 23:59 | disposition home or self-care (01) ==
LOC: RAD 09:24
PROVIDERS: PCP Nurse Practitioner; Visit Provider Nurse Practitioner
DX: M51.34 Other intervertebral disc degeneration, thoracic region (principal); M41.9 Scoliosis, unspecified
CPT/HCPCS: 72146

== ENCOUNTER 2025-02-26 10:15 | Outpatient (CLI) | payer MEDICARE, OTHER, SELFPAY ==
[2025-02-26 10:28] LABS: Microscopic, Urine URINE MICROSCOPIC (MICROSCOPIC)
[2025-02-26 10:51] LABS: Hematocrit 37.5 % (37.0-47.0); Hemoglobin 12.6 g/dL (12.2-16.2); Mean Corpuscular HGB Conc 33.6 g/dL (31.8-35.4); Mean Corpuscular Hemoglobin 32.3 pg (27.0-31.2); Mean Corpuscular Volume 96.2 fl (81-99); Nucleated Red Blood Cells # 0 10^3/uL; Nucleated Red Blood Cells % 0 %; Platelet Count 312 K/mm3 (142-424); Red Cell Distribution Width-SD 53.4 fL; White Blood Count 9.8 K/mm3 (4.8-10.8)
[2025-02-26 11:00] LABS: Appearance,Urine CLEAR (Clear); Bilirubin,Urine Negative (Negative); Blood, Urine Negative (Negative); Color,Urine YELLOW (Yellow); Glucose,Urine (UA) Negative (Negative); Ketones,Urine Negative (Negative); Leukocyte Esterase,Urine 1+ (Negative); Nitrate,Urine Negative (Negative); Protein,Urine Negative (Negative)
[2025-02-26 11:05] LABS: Creatinine,Urine Random 177 mg/dL (Not Estab.); Total Protein,Urine Random < 5.0 mg/dL (0.0-12.0)
[2025-02-26 11:10] LABS: Bacteria,Urine Trace /lpf
[2025-02-26 11:12] LABS: Albumin Level 4.5 g/dl (3.5-5.0); Anion Gap 8.4 mEq/L (5-15); Blood Urea Nitrogen 30 mg/dl (7-17); Calcium 10.1 mg/dl (8.4-10.2); Carbon Dioxide 25 mmol/L (22.0-30.0); Chloride 109 mmol/L (98-107); Estimated Glomerular Filt Rate 53 ml/min (>60); GFR (African American) 64 ML/MIN (>60); Glucose 100 mg/dl (74-100); Phosphorous 3.6 mg/dl (2.5-4.5); Potassium 4.4 mmoL/L (3.5-5.1); Sodium 138 mmol/L (136-145)
[2025-02-26 11:24] LABS: Intact Parathyroid Hormone 60.3 pg/mL (7.5-53.5)
[2025-02-26 11:28] LABS: 25-OH Vitamin D, Total 87.9 ng/mL (30-100)
== END 2025-02-26 23:59 | disposition home or self-care (01) ==
LOC: LAB 10:17
PROVIDERS: PCP Nurse Practitioner; Visit Provider Student in an Organized Health Care Education/Training Program
DX: I12.9 Hypertensive chronic kidney disease with stage 1 through stage 4 chronic kidney disease, or unspecified chronic kidney disease (principal); N18.30 Chronic kidney disease, stage 3 unspecified
CPT/HCPCS: 36415; 80069; 81001; 82306; 82570; 83970; 84156; 85027; 87086

== ENCOUNTER 2025-03-17 11:06 | Outpatient (CLI) | payer MEDICARE, OTHER, SELFPAY ==
[2025-03-17 19:03] LABS: Anion Gap 13.6 mEq/L (5-15); Blood Urea Nitrogen 33 mg/dl (7-17); Calcium 9.4 mg/dl (8.4-10.2); Carbon Dioxide 22 mmol/L (22.0-30.0); Chloride 108 mmol/L (98-107); Estimated Glomerular Filt Rate 43 ml/min (>60); GFR (African American) 52 ML/MIN (>60); Glucose 82 mg/dl (74-100); Potassium 3.6 mmoL/L (3.5-5.1); Sodium 140 mmol/L (136-145)
[2025-03-17 19:29] LABS: Free T4 (Free Thyroxine) 1.75 ng/dl (0.78-2.19)
== END 2025-03-17 23:59 | disposition home or self-care (01) ==
LOC: LAB.DROPOF 03-18 13:48
PROVIDERS: PCP Nurse Practitioner; Visit Provider Nurse Practitioner
DX: E03.9 Hypothyroidism, unspecified (principal); N18.9 Chronic kidney disease, unspecified
CPT/HCPCS: 80048; 84439; 84443

== ENCOUNTER 2025-03-21 13:53 | Outpatient (CLI) | payer MEDICARE, OTHER, SELFPAY ==
--- OUTSIDE RECORDS SUMMARY | 2025-02-28 10:00 | XMS_ITS | Encounter Summary ---
Author Organization Healthcare Address [address] [place] [address] Care Team Providers Care [employer] Name Role Phone Alicia Crespo Conrado CEJA Primary Care Provider [phone] Reason for Visit * Reason Comments Consult Pt is a 84 year old female that presents to the clinic on this date for a new patient consult. Pt states she is having pain in her lower back that she rates 3/10. Pt denies any complaints or concerns at the current moment. Encounter Details Date Type Department Care Team (Late st Contact Info) Description 02/28/2025 10:00 AM EDT Office Visit [facility] [address] [place] [address] Octavio Wang MD [address] [place] [phone] Severe obesity (BMI 35.0-39.9) with comorbidity (CMS/HCC) (Primary Dx); Stage 3a chronic kidney disease (CMS/HCC); Chronic kidney disease-mineral and bone disorder (CKD-MBD); Mixed hyperlipidemia; Hypertensive chronic kidney disease with stage 1 through stage 4 chronic kidney disease, or unspecified chronic kidney disease Social History Tobacco Use Types Packs/Day Years Used Date Smoking Tobacco: Former Cigarettes Smokeless Tobacco: Never Alcohol Use Standard Drinks/Week Comments Never 0 (1 standard drink = 0.6 oz pur e alcohol) Comments No Sex and Gender Information Value Date Recorded Sex Assigned at Not on file Legal Sex Female 1:32 PM EST Gender Identity Not on file Sexual Orientation Not on file documented as of this encounter Last Filed Vital Signs Vital Sign Reading Time Taken Comments Blood Pressure 114/67 02/28/2025 9:51 AM EDT Pulse 71 02/28/2025 9:51 AM EDT Temperature - - Respiratory Rate 20 02/28/2025 9:51 AM EDT Oxygen Saturation 97% 02/28/2025 9:51 AM EDT Inhaled Oxygen Concentration - - Weight 99.8 kg (220 lb) 02/28/2025 9:51 AM EDT Height 162.6 cm (5' 4 ) 02/28/2025 9:51 AM EDT Body Mass Index 37.76 02/28/2025 9:51 AM EDT documented in this encounter Miscellaneous Notes * Progress Notes - Octavio Wang MD - 02/28/2025 10:00 AM EDT Nephrology Outpatient Clinic New Consult Visit Psychiatric Patient: Julien Portillo Primary Care Provider: Alicia Crespo APRN Referring Provider: Alicia Crespo APRN Reason for consult: Chronic Kidney Disease Stage 3a HPI/Subjective Julien Portillo is a 84 y.o. female with a PMH of HTN, Obesity, and Chronic kidney disease who previously followed with another [employer] but has now moved to [place] and seeking to establish care. She had a dental procedure in the past and was taking NSAIDs for pain when she was discovered to have an acute kidney injury. She stopped the NSAIDs and was sent to see a [employer] St[employer] who did a serological work-up which was negative. She since then has had CKD stage 3. In August 2024 she had another MARSHA peak cr 1.4, then had her blood pressure medications adjusted and this improved as well. 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 She occassionally has swelling her legs, but none today. No urinary issues. Her son had T1DM anddeveloped kidney failure requiring SPK in his 20s. She otherwise has been doing well, no acute complaints today. Patient's daughter is with her in clinic today and provides additional history. ROS Review of Systems negatives besides mentioned in above HPI History: Medical History[1] Problem List[2] Surgical History[3] Family History[4] Social History Socioeconomic History Marital status: Single Spouse name: Not on file Number of children: Not on file Years of education: Not on file Highest education level: Not on file Occupational History Not on file Tobacco Use Smoking status: Former Types: Cigarettes Smokeless tobacco: Never Substance and Sexual Activity Alcohol use: Never Drug use: Never Sexual activity: Not on file Other Topics Concern Not on file Social History Narrative Not on file Social Drivers of Health Financial Resource Strain: Not on file Food Insecurity: Not on file Transportation Needs: Not on file Physical Activity: Not on file Stress: Not on file Social Connections: Not on file Intimate Partner Violence: Not on file Housing Stability: Not on file Allergies[5] Medications: Current Medications: Current Outpatient Medications Medication Instructions allopurinol (ZYLOPRIM) 100 mg, 2 times daily amLODIPine (NORVASC) 10 mg, Daily aspirin 81 mg, Daily B Complex-C (b complex-vitamin c) tablet 1 tablet, Daily cholecalciferol (VITAMIN D-3) 1,000 Units, Daily citalopram (CELEXA) 20 mg, Daily Coenzyme Q10 (CoQ10) 100 MG capsule Take by mouth. hydroCHLOROthiazide (HYDRODIURIL) 25 mg, Daily LEVOTHYROXINE SODIUM PO Take by mouth. lisinopril 20 mg, Daily methocarbamol (ROBAXIN) 750 mg, 4 times daily metoprolol succinate XL (TOPROL-XL) 25 mg, Daily rosuvastatin (CRESTOR) 10 mg, Daily Objective Visit Vitals BP 114/67 (BP Location: Left arm, Patient Position: Sitting, BP Cuff Size: Large adult long) Pulse 71 Resp 20 Ht 1.626 m (5' 4 ) Wt 99.8 kg (220 lb) LMP (LMP Unknown) SpO2 97% BMI 37.76 kg/m?? OB Status Postmenopausal Smoking Status Former BSA 2.12 m?? Heart Rate: [71] 71 Resp: [20] 20 BP: (114)/(67) 114/67 Physical Exam: Physical Exam Constitutional: General: She is not in acute distress. Appearance: Normal appearance. She is obese. She is not ill-appearing. HENT: Head: Normocephalic. Right Ear: External ear normal. Left Ear: External ear normal. Nose: Nose normal. Mouth/Throat: Mouth: Mucous membranes are moist. Pharynx: Oropharynx is clear. Eyes: Conjunctiva/sclera: Conjunctivae normal. Pupils: Pupils are equal, round, and reactive to light. Cardiovascular: Rate and Rhythm: Normal rate. Pulses: Normal pulses. Pulmonary: Effort: Pulmonary effort is normal. Abdominal: General: Abdomen is flat. Musculoskeletal: General: Normal range of motion. Right lower leg: No edema. Left lower leg: No edema. Skin: General: Skin is warm and dry. Capillary Refill: Capillary refill takes less than 2 seconds. Neurological: General: No focal deficit present. Mental Status: She is alert and oriented to person, place, and time. Mental status is at baseline. Psychiatric: Mood and Affect: Mood normal. Behavior: Behavior normal. Thought Content: Thought content normal. Judgment: Judgment normal. Laboratory: LAB RESULTS I have personally reviewed these laboratory and imaging studies Labs 08/26/24 RFP: Na 137, K 4.6, Cl 103, BUN 51, Cr 1.4, EGFR 36 HGB A1C 5.9% Labs 12/16/24 Na 140, K 4.8, CO2 24, CL 107, BUN 32, Cr 1.1, EGFR 48, Ca 10.5, Uric acid 4.6 Labs from 02/26/2025 Na 138, K 4.4, Cl 109, CO2 25, BUN 30, Cr 1.00, eGFR 53 , Glu 100, Ca 10.1, Phos 3.6, Alb 4.5, Vit D 87.9, PTH 60.3 CBC: WBC 9.8, Hgb 12.6, UA: SG 1.020, Neg protein, Neg blood, +leuk esterase + WBC 5-10 UPCR: <0.1 Imaging: No recent kidney imaging for review Impression & Plan: #CKD Stage 3a Etiology: suspect hypertensive nephrosclerosis + senescence Baseline serum creatinine: 1-1.2 Most recent Scr: 1.0 eGFR 53 mL/min Electrolytes, acid/base, volume status wnl Urine: Neg blood, Neg protein Anatomy: normal, no recent imaging report to review Risk factor reduction to slow progression of kidney disease: -BP Control goal BP <130/80 -Lifestyle management: Is working n weight loss current bmi is Body mass index is 37.76 kg/m??. ---Diet recommendations: Heart healthy and Low sodium <2g/day, Low carb ---Daily exercise 20-30 minutes as tolerated -Avoid NSAIDs -BELA blockade: Lisinopril -SGLT2 inhibitor: No strong indication given lack of proteinuria #HTN in CKD- controlled -goal BP <130/80 -on lisinopril taking 4 days a week (SSTR) and hydrochlorothiazide (MWF) #CKD Bone and Mineral Disease -vit d and pth are acceptable. Normal calcium normal phos levels #Hyperlipidemia in CKD -she is on rosuvastatin 10mg #Obesity BMI 37.76 Recommendations and plan: -I have reviewed Ms. Portillo's labs, she had a mild MARSHA in Aug 2024 that has resolved with reducing her BP meds. Her BP is at goal. Her greatest modifiable risk factor to slow CKD progression is weight loss which she is doing. -No change in medications today. Continue lisinopril at current dose. No need for SGLT2 inhibitor at this time. -I counseled her to Continue to avoid NSAIDs -Agree with low sodium diet and low carb to help with weight loss. -Encourage daily exercise such as walking 1-2 miles as tolerated RTC in 1 year Octavio Wang MD Division of Nephrology [facility] Counseling Documentation: The patient was counseled regarding COUNSELING TOPICS: diagnostic results, prognosis, risks and benefit of treatment options, risk factor reductions, instructions for management, patient and family education, medication changes, diagnostic impressions, Heart healthy diet, regular physical activity and weight control, Avoidance of NSAIDs and other nephrotoxins, and long-term nature of condition. Education provided was verbal counseling.Additional time was spent in care coordination including medical record review. ENCOUNTER TIMING: I personally spent a total of 30 minutes on this encounter. This time includes face to face with patient, counseling and discussion, lab/result interpretation, coordination of follow-up care, document review. The total time of encounter was 30 minutes and greater than 50% of the visit was spent in c ounseling/coordination of care. . MDM: - was based on the following: History obtained from family Labs reviewed Urine studies: UA or spot urine protein and creatinine ratio and Metabolic profile: renal panel or CBC Old chart reviewed ORDERS PLACED THIS ENCOUNTER Orders Placed This Encounter Procedures CBC W/O Differential Standing Status: Future Expected Date: 02/28/2026 Expiration Date: [facility] Urinalysis with reflex microscopic (Culture NOT Included) Standing Status: Future Expected Date: 02/28/2026 Expiration Date: 2026 Release to patient in [facility]: Immediate Vitamin D 25 Hydroxy Standing Status: Future Expected Date: 02/28/2026 Expiration Date: 2026 [facility] PTH Intact Total Standing Status: Future Expected Date: 02/28/2026 Expiration Date: 2026 Release to patient in [facility]: Immediate Albumin-creatinine ratio, urine, random Standing Status: Future Expected Date: 02/28/2026 Expiration Date: 2026 [facility] Protein, Random, Urine with Creatinine Standing Status: Future Expected Date: 02/28/2026 Expiration Date: 2026 Release to patient in [facility]: Immediate Renal Function Panel, Plasma Standing Status: Future Expected Date: 02/28/2026 Expiration Date: 2026 Release to patient in [facility]: Immediate Problem List Items Addressed This Visit Severe obesity (BMI 35.0-39.9) with comorbidity (CMS/HCC) - Primary Relevant Orders CBC W/O Differential Urinalysis with reflex microscopic (Culture NOT Included) Vitamin D 25 Hydroxy PTH Intact Total Albumin-creatinine ratio, urine, random Protein, Random, Urine with Creatinine Renal Function Panel, Plasma Hypertensive chronic kidney disease with stage 1 through stage 4 chronic kidney disease, or unspecified chronic kidney disease Relevant Medications lisinopril 20 MG tablet hydroCHLOROthiazide (HYDRODiuril) 25 MG tablet Mixed hyperlipidemia Relevant Medications rosuvastatin (Crestor) 10 MG tablet Chronic kidney disease-mineral and bone disorder (CKD-MBD) Relevant Medications lisinopril 20 MG tablet hydroCHLOROthiazide (HYDRODiuril) 25 MG tablet Stage 3a chronic kidney disease (CMS/HCC) Relevant Medications lisinopril 20 MG tablet hydroCHLOROthiazide (HYDRODiuril) 25 MG tablet Other Relevant Orders CBC W/O Differential Urinalysis with reflex microscopic (Culture NOT Included) Vitamin D 25 Hydroxy PTH Intact Total Albumin-creatinine ratio, urine, random Protein, Random, Urine with Creatinine Renal Function Panel, Plasma I confirm that I have addressed the patient's longitudinal multifaceted and complex health related active and chronic conditions that will require ongoing care with myself or someone on my team. [1] Past Medical History: Diagnosis Date Anxiety and depression Cataract HLD (hyperlipidemia) HTN (hypertension), malignant Hyperuricemia Hypothyroidism Lumbar degenerative disc disease Lumbar paraspinal muscle spasm Myalgia Renal insufficiency Uterine cancer (CMS/HCC) [2] Patient Active Problem List Diagnosis Obesity (BMI 35.0-39.9 without comorbidity) Severe obesity (BMI 35.0-39.9) with comorbidity (CMS/HCC) [3] Past Surgical History: Procedure Laterality Date BREAST BIOPSY COLONOSCOPY DENTAL SURGERY FOOT SURGERY Left HYSTERECTOMY TONSILLECTOMY [4] History reviewed. No pertinent family history. [5] Allergies Allergen Reactions Ibuprofen Unknown - Patient states they do not know rxn details Tape/Bandaid Adhesive Other - please document in the comment field blisters documented in this encounter Plan of Treatment Scheduled Orders Name Type Priority Associated Diagnoses Orde r Schedule CBC W/O Differential Lab Routine Severe obesity (BMI 35.0-39.9) with comorbidity (CMS/HCC) Stage 3a chronic kidney disease (CMS/HCC) Expected: 02/28/2026 (Approximate), Expires: 2026 Urinalysis with reflex microscopic (Culture NOT Included) Lab Routine Severe obesity (BMI 35.0-39.9) with comorbidity (CMS/HCC) Stage 3a chronic kidney disease (CMS/HCC) Expected: 02/28/2026 (Approximate), Expires: 2026 Vitamin D 25 Hydroxy Lab Routine Severe obesity (BMI 35.0-39.9) with comorbidity (CMS/HCC) Stage 3a chronic kidney disease (CMS/HCC) Expected: 02/28/2026 (Approximate), Expires: 2026 PTH Intact Total Lab Routine Severe obesity (BMI 35.0-39.9) with comorbidity (CMS/HCC) Stage 3a chronic kidney disease (CMS/HCC) Expected: 02/28/2026 (Approximate), Expires: 2026 Albumin-creatinine ratio, urine, random Lab Routine Severe obesity (BMI 35.0-39.9) with comorbidity (CMS/HCC) Stage 3a chronic kidney disease (CMS/HCC) Expected: 02/28/2026 (Approximate), Expires: 2026 Protein, Random, Urine with Creatinine Lab Routine Severe obesity (BMI 35.0-39.9) with comorbidity (CMS/HCC) Stage 3a chronic kidney disease (CMS/HCC) Expected: 02/28/2026 (Approximate), Expires: 2026 Renal Function Panel, Plasma Lab Routine Severe obesity (BMI 35.0-39.9) with comorbidity (CMS/HCC) Stage 3a chronic kidney disease (CMS/HCC) Expected: 02/28/2026 (Approximate), Expires: 2026 documented as of this encounter Visit Diagnoses Diagnosis Severe obesity (BMI 35.0-39.9) with comorbidity (CMS/HCC)- Primary Stage 3a chronic kidney disease (CMS/[facility]) Chronic kidney disease-mineral and bone disorder (CKD-MBD) Mixed hyperlipidemia Hypertensive chronic kidney disease with stage 1 through stage 4 chronic kidney disease, or unspecified chronic kidney disease documented in this encounter Additional Health Concerns Assessment Noted Time A Body Mass Index follow-up plan has been documented for the patient 02/28/2025 10:35 AM EDT documented as of this encounter Care Teams [employer] Relationship Specialty Start Date End Date Alicia Crespo APRN [address] [place] [address] PCP - General 09/09/24 documented as of this encounter
--- OUTSIDE RECORDS SUMMARY | 2025-03-21 13:57 | XMS_ITS | Clinical Summary ---
Author Organization Healthcare Address [address] [place] [address] Care Team Providers Care Patternmaker [employer] Name Role Phone Alicia Crespo APRN Primary Care Provider [phone] Allergies Active Allergy Reactions Criticality Noted Date Comments Ibuprofen Unknown - Patient st ates they do not know rxn details Low 02/24/2025 Tape/Bandaid Adhesive Other - please doc ument in the comment field Low 02/24/2025 blisters Medications allopurinol (Zyloprim) 100 MG tablet Take 1 tablet by mouth 2 times a day. Active amLODIPine (Norvasc) 10 MG tablet Take 1 tablet by mouth daily. Active aspirin 81 MG EC tablet Take 1 tablet by mouth daily. Active B Complex-C (b complex-vitamin c) tablet Take 1 tablet by mouth daily. Active cholecalciferol (Vitamin D-3) 25 MCG (1000 UT) capsule Take 1 capsule by mouth daily. Active citalopram (CeleXA) 20 MG tablet Take 1 tablet by mouth daily. Active Coenzyme Q10 (CoQ10) 100 MG capsule Take by mouth. Active LEVOTHYROXINE SODIUM PO Take by mouth. Active lisinopril 20 MG tablet Take 1 tablet by mouth daily. Active metoprolol succinate XL (Toprol-XL) 25 MG 24 hr tablet Take 1 tablet by mouth daily. Do not crush or chew. Active rosuvastatin (Crestor) 10 MG tablet Take 1 tablet by mouth daily. Active methocarbamol (Robaxin) 750 MG tablet Take 1 tablet by mouth 4 times a day. Active hydroCHLOROthia zide (HYDRODiuril) 25 MG tablet Take 1 tablet by mouth daily. Active cyclobenzaprine (Flexeril) 5 MG tablet Take 1 tablet by mouth 3 times a day as needed for muscle spasms. 02/29/20 Discontinue d(Per Patient Report) KRILL OIL PO Take by mouth. 02/29/20 Discontinue d(Per Patient Report) lisinopril-hydr oCHLOROthiazide 20-25 MG tablet Take 1 tablet by mouth daily. 02/29/20 Discontinue d(Per Patient Report) Active Problems Problem Noted Date Diagnosed Date Obesity (BMI 35.0-39.9 without comorbidity) 02/13 Severe obesity (BMI 35.0-39.9) with comorbidity 02/28/2025 Hypertensive chronic kidney disease with stage 1 through stage 4 chronic kidney disease, or unspecified chronic kidney disease 02/28/2025 Mixed hyperlipidemia 02/28/2025 Chronic kidney disease-mineral and bone disorder (CKD-MBD) 02/28/2025 Stage 3a chronic kidney disease 02/28/2025 Encounters Date Type Department Care Team Description 02/28/2025 10:00 AM EDT Office Visit [facility] [address] [place] [address] Octavio Wang MD Severe obesity (BMI 35.0-39.9) with comorbidity (CMS/HCC) (Primary Dx); Stage 3a chronic kidney disease (CMS/HCC); Chronic kidney disease-mineral and bone disorder (CKD-MBD); Mixed hyperlipidemia; Hypertensive chronic kidney disease with stage 1 through stage 4 chronic kidney disease, or unspecified chronic kidney disease 02/28/2025 Travel from Last 3 Months Social History Tobacco Use Types Packs/Day Years Used Date Smoking Tobacco: Former Cigarettes Smokeless Tobacco: Never Alcohol Use Standard Drinks/Week Comments Never 0 (1 standard drink = 0.6 oz pur e alcohol) Comments No Sex and Gender Information Value Date Recorded Sex Assigned at Not on file Legal Sex Female 1:32 PM EST Gender Identity Not on file Sexual Orientation Not on file Last Filed Vital Signs Vital Sign Reading [...] Mass Index 37.76 02/28/2025 9:51 AM EDT Plan of Treatment Health Maintenance Due Date Last Done Comments [facility]-Bone Density Scan 1942 [facility]-Depression Screening 1942 [facility]-Medicare Annual Wellness (AWV) 1942 [facility]-/Child/Adol SDOH Screenings 1942 [facility]- SDOH Screenings 1960 [facility]-Adult SDOH Screenings 1960 [facility]-DTaP,Tdap,and Td Vaccine s (1 - Tdap) 1961 [facility]-Pneumococcal Vaccine: 50 + Years (1 of 1 - PCV) 1992 [facility]-Zoster Vaccines (1 of 2) 1992 [facility]-RSV Vaccine: 60+ Years o r (1 - 1-dose 75+ series) 2017 [id number] Vaccine ( 24-25 season) 2024 [facility]-Influenza Vaccine (Seaso n Ended) 2025 [facility]-Obesity Intervention Completed 02/28/2025 HPV Vaccines Aged Out No longer eligi ble based on patient's age to complete this topic [facility]-HIB Vaccines Aged Out No longer e ligible based on patient's age to complete this topic [facility]-Hepatitis A Vaccines Aged Out No longer eligible based on patient's age to complete this topic [facility]-IPV Vaccines Aged Out No longer e ligible based on patient's age to complete this topic [facility]-Rotavirus Vaccines Aged Out No lo nger eligible based on patient's age to complete this topic Insurance MEDICARE Care Teams Patternmaker Wood Relationship Specialty Start Date End Date Alicia Crespo APRN [facility] [place] [address] PCP - General 09/09/24
--- OUTSIDE RECORDS SUMMARY | 2025-03-21 13:57 | XMS_ITS | Encounter Summary ---
Author Organization Healthcare Address [address] [place] [address] Care Team Providers Care Audio/Video Technician Name Role Phone Alicia Crespo APRN Primary Care Provider [phone] Encounter Details Date Type Department Care Team (Latest Contact Info) Description 02/28/2025 Travel Social History Tobacco Use Types Packs/Day Years [...] on file documented as of this encounter Plan of Treatment Not on file documented as of this encounter Visit Diagnoses Not on filedocumented in this encounter Additional Health Concerns Assessment Noted Time A Body Mass Index follow-up plan has been documented for the patient 02/28/2025 10:35 AM EDT documented as of this encounter Care Teams Audio/Video Technician Relationship Specialty Start Date End Date Alicia Crespo APRN [address] [place] [address] PCP - General 09/09/24 documented as of this encounter
--- NOTE | 2025-03-21 14:15 | MM_ITS ---
PROCEDURE INFORMATION: Exam: MG Bilateral Screening 3D Mammography Exam date and time: 03/21/2025 1:59 PM Age: 84 years old Clinical indication: Screening examination TECHNIQUE: Imaging protocol: Bilateral Screening tomosynthesis and 2D mammography including computer-aided detection (CAD) when performed. COMPARISON: 1. MG MM DIG SCREENING MAMM BI W/CAD 09/16/2022 1:09 PM 2. MG SCREENING BILATERAL 06/13/2018 8:58 AM FINDINGS: MAMMOGRAPHY: Breast composition: The breasts are heterogeneously dense, which may obscure small masses. Mass: None. Architectural distortion: None. Calcifications: No suspicious calcifications. Asymmetric density: None. Skin thickening: None. Axillary adenopathy: None. IMPRESSION: No mammographic evidence of malignancy. Annual screening is recommended unless otherwise clinically indicated. ASSESSMENT: BI-RADS Category 1: Negative.
== END 2025-03-21 23:59 | disposition home or self-care (01) ==
LOC: RAD 13:54
PROVIDERS: PCP Nurse Practitioner; Visit Provider Nurse Practitioner
DX: Z12.31 Encounter for screening mammogram for malignant neoplasm of breast (principal); R92.333 Mammographic heterogeneous density, bilateral breasts
CPT/HCPCS: 77063; 77067

== ENCOUNTER → 2025-05-08 09:47 | Outpatient (RCR) | payer MEDICARE, OTHER, SELFPAY | LOC: PT 09:47 | PROVIDERS: PCP Nurse Practitioner; Visit Provider Neurological Surgery | DX: R10.9 Unspecified abdominal pain (principal) | CPT/HCPCS: 97163; 97530 ==

== ENCOUNTER 2025-06-04 10:00 | Outpatient (RCR) | payer MEDICARE, OTHER, SELFPAY | END 2025-06-04 23:59 | disposition home or self-care (01) | LOC: PT 10:00 | PROVIDERS: PCP Nurse Practitioner; Visit Provider Neurological Surgery | DX: R10.9 Unspecified abdominal pain (principal) | CPT/HCPCS: 97110; 97140; 97530 ==

== ENCOUNTER 2025-07-10 10:00 | Outpatient (RCR) | payer MEDICARE, OTHER, SELFPAY | END 2025-07-10 23:59 | disposition home or self-care (01) | LOC: PT 10:00 | PROVIDERS: PCP Nurse Practitioner; Visit Provider Neurological Surgery | DX: R10.9 Unspecified abdominal pain (principal) | CPT/HCPCS: 97110; 97140; 97530 ==

== ENCOUNTER 2025-07-23 11:13 | Outpatient (CLI) | payer MEDICARE, OTHER, SELFPAY ==
[2025-07-23 18:28] LABS: Hemoglobin A1C 5.7 % (4.0-6.0)
[2025-07-23 18:33] LABS: Free T4 (Free Thyroxine) 1.64 ng/dl (0.78-2.19)
[2025-07-23 18:39] LABS: Alanine Aminotransferase 17 U/L (12-78); Albumin Level 4.1 g/dl (3.5-5.0); Albumin/Globulin Ratio 1.7 (1.1-1.8); Alkaline Phosphatase 70 U/L (38-126); Anion Gap 15.9 mEq/L (5-15); Aspartate Amino Transferase 26 U/L (14-36); Bilirubin,Total 0.8 mg/dl (0.2-1.3); Blood Urea Nitrogen 28 mg/dl (7-17); Calcium 10.3 mg/dl (8.4-10.2); Carbon Dioxide 24 mmol/L (22.0-30.0); Chloride 103 mmol/L (98-107); Cholesterol 123 mg/dl (140-200); Creatinine,Serum 1.20 mg/dl (0.52-1.04); Estimated Glomerular Filt Rate 43 ml/min (>60); GFR (African American) 52 ML/MIN (>60); Globulin 2.4 g/dL (1.3-3.2); Glucose 62 mg/dl (74-100); HDL Cholesterol 51 mg/dl (40-60); Potassium 4.9 mmoL/L (3.5-5.1); Sodium 138 mmol/L (136-145); Total Protein,Serum 6.5 g/dl (6.3-8.2); Triglycerides 98 mg/dl (30-150); Uric Acid 4.5 mg/dl (2.5-6.2)
[2025-07-23 19:09] LABS: Thyroid Stimulating Hormone 0.85 uIU/mL (0.465-4.68)
== END 2025-07-23 23:59 ==
LOC: LAB.DROPOF 07-25 00:15
PROVIDERS: PCP Nurse Practitioner; Visit Provider Nurse Practitioner
DX: E03.9 Hypothyroidism, unspecified (principal); I10 Essential (primary) hypertension; E79.0 Hyperuricemia without signs of inflammatory arthritis and tophaceous disease; R73.01 Impaired fasting glucose; E78.5 Hyperlipidemia, unspecified
CPT/HCPCS: 80053; 80061; 83036; 84439; 84443; 84550

== ENCOUNTER 2025-07-29 11:28 | Outpatient (CLI) | payer MEDICARE, OTHER, SELFPAY ==
--- NOTE | 2025-07-29 11:31 | XR_ITS ---
FINAL REPORT CLINICAL HISTORY: Left shoulder pain after fall COMPARISON: None FINDINGS: 2 views of the left shoulder were obtained. There is no fracture or dislocation. Mild degenerative joint disease is present. Soft tissues are unremarkable. IMPRESSION: Mild degenerative joint disease, with no acute osseous abnormality of the left shoulder. Reviewed, Interpreted and Dictated by Stacey Montano MD Transcribed by Marleny Biswas Authenticated and [facility]
--- OUTSIDE RECORDS SUMMARY | 2025-07-29 11:33 | XMS_ITS | Clinical Summary ---
Author Organization Healthcare Address [address] [place] [address] Care Team Providers Care Family Engagement Specialist Name Role Phone Alicia Crespo APRN Primary Care Provider [phone] Allergies Active Allergy Reactions Criticality Noted Date [...] Take 1 tablet by mouth daily. Active Active Problems Problem Noted Date Diagnosed Date Obesity (BMI 35.0-39.9 without comorbidity) 02/13 Severe obesity (BMI 35.0-39.9) with comorbidity 02/28/2025 Hypertensive chronic kidney disease with stage 1 through stage 4 chronic kidney disease, or unspecified chronic kidney disease 02/28/2025 Mixed hyperlipidemia 02/28/2025 Chronic kidney disease-mineral and bone disorder (CKD-MBD) 02/28/2025 Stage 3a chronic kidney disease 02/28/2025 Social History Tobacco Use Types Packs/Day Years [...] Health Maintenance Due Date Last Done Comments [facility]-Bone Density Scan 1942 [facility]-Depression Screening 1942 [facility]Medicare Annual Wellness (AWV) 1942 [facility]-Infant/Child/Adol SDOH Screenings 1942 [id number] Vaccine (#1) 1947 [facility]- SDOH Screenings 1960 [facility]-Adult SDOH Screenings 1960 [facility]-DTaP,Tdap,and Td Vaccine s (1 - Tdap) 1961 [facility]-Pneumococcal Vaccine: 50 + Years (1 of 1 - PCV) 1992 [facility]-Zoster Vaccines (1 of 2) 1992 [facility]-RSV Vaccine: 60+ Years o r (1 - 1-dose 75+ series) 2017 [facility]-Influenza Vaccine (#1) 2025 [facility]-Obesity Intervention Completed 02/28/2025 HPV Vaccines [...] age to complete this topic [place] [address] Care Teams Family Engagement Specialist Relationship Specialty Start Date End Date Alicia Crespo APRN [address] [place] [address] [facility] - General 09/09/24
== END 2025-07-29 23:59 | disposition home or self-care (01) ==
LOC: RAD 11:29
PROVIDERS: PCP Nurse Practitioner; Visit Provider Physician Assistant
DX: M19.012 Primary osteoarthritis, left shoulder (principal); W19.XXXA Unspecified fall, initial encounter
CPT/HCPCS: 73030

== ENCOUNTER 2025-08-14 09:00 | Outpatient (RCR) | payer MEDICARE, OTHER, SELFPAY ==
--- NOTE | 2025-08-04 11:48 | HMH.OTOPEV ---
OT Evaluation Rehab OT Outpatient Eval Start: 08/04/25 10:58 Freq: Status: Active Protocol: Document 08/04/25 11:35 SOCOWENDI (Rec: 08/04/25 11:44 SANAMAL [id number]) E-signed By Corry Alexander, OT Outpatient Therapy Subjective History Subjective History 85-year-old female referred to skilled OT services for left shoulder pain. Patient reports experiencing pain for approximately one month, resulting in difficulty with dressing and overhead activities. X-ray of the left shoulder completed on 07/29/25 revealed no significant findings. Patient demonstrates need for skilled OT services to address pain management, restore functional ROM, improve strength, and promote independence with ADLs, particularly upper body dressing. Chief Complaint Pain Symptom Type Ache Symptoms Relieved By Nothing Symptoms Aggravated Physical Activity By Prior Functional None Limitations Current Functional Reaching,Lifting Limitations Symptom Description Constant and Continuous Level of pain today 3 (0-10) Pain scale - at its 3 best (0-10) Pain scale - at its 10 worst (0-10) Shoulder/Elbow Eval Shoulder Objective Measurements Shoulder ROM Left Shoulder Abduction 110 Active Range of Motion (degrees) Shoulder Flexion 120 Active Range of Motion (degrees) Query Text: Shoulder External 40 Rotation Active Range of Motion ( degrees) Shoulder Internal 40 Rotation Active Range of Motion ( degrees) pain with active ROM left shoulder exam standard Shoulder MMT Shoulder Abduction 3- Fair- Strength Grade Shoulder Extension 3- Fair- Strength Grade Shoulder Flexion 3- Fair- Strength Grade Shoulder Horizontal 3- Fair- Abduction Strength Grade Shoulder Horizontal 3- Fair- Adduction Strength Grade Infraspinatus/Teres 3- Fair- Minor Strength Grade Shoulder External 3- Fair- Rotation Strength Grade Shoulder Internal 3- Fair- Rotation Strength Grade Elbow Objective Measurements QuickDASH Activities Please rate your ability to do the following activities in the last week by selecting the number below the appropriate response. 1. Open a tight or Moderate difficulty new jar. 2. 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 g., wash balderas, floors). 3. Carry a shopping Moderate difficulty bag or briefcase. 4. Wash your back. Severe difficulty 5. Use a knife to Mild difficulty cut food. 6. Recreational Unable activities in which you take some force or impact through your arm, shoulder, or hand (e.g., golf, hammering, tennis, etc.). 7. During the past Moderately week, to what extent has your arm, shoulder or hand problem interfered with your normal social activities with family, friends , neighbors or groups? 8. During the past Moderately limited week, were you limited in your work or other regular daily activites as a result of your arm, shoulder or hand problem? 9. Arm, shoulder or Moderate hand pain. 10. Tingling (pins Moderate and needles) in your arm, shoulder or hand. 11. During the past Severe difficulty week, how much difficulty have you had sleeping because of the pain in your arm, shoulder or hand? Quick DASH 37 OT Patient Goals OT Patient Goals OT Short Term 1. Patient will demonstrate improved left shoulder Patient Goals active ROM by 10?15 degrees in flexion and abduction to assist with dressing tasks. 2. Patient will report a decrease in shoulder pain to = 3/10 during ADL activities. 3. Patient will perform upper body dressing with minimal assistance using adaptive strategies or positioning techniques. 4. Patient will demonstrate understanding of and compliance with a home exercise program (HEP) for pain management and mobil OT Mcfp Patient 1. Patient will achieve functional shoulder ROM within Goals normal limits to complete dressing and grooming tasks independently. 2. Patient will report no more than 1/10 pain with ADL and light household tasks. 3. Patient will demonstrate improved upper extremity strength to at least 4+/5 to enhance performance in daily routines. 4. Patient will independently apply joint protection and activity modification techniques to prevent symptom recurrence. OT Outpatient Assessment Impairments Problems/Impairments Impaired Range of Motion,Impaired Strength,Subjective C /O Pain Prognosis Rehab Potential Good Clinical Impression Consistent with Yes Diagnosis Outpatient Therapy Plan of Care Treatment Plan May Include Therapeutic Exercise Yes Including Home Exercise Program Manual Therapy Yes Techniques Therapeutic Yes Activities to Return to Previous Functional/Work Level Thermal Modalities Yes Electrical Yes Stimulation Ultrasound/ Yes Phonophoresis Iontophoresis Yes Eval/Re-Eval Yes Frequency Times per week 2x/wk Duration Number of Weeks 4 weeks Addendums This patient is a No candidate for social or vocational rehab ? Patient/Guardian Yes verbally acknowledges understanding of treatment program and consents to further treatment? Patient/Guardian Yes verbally acknowledges understanding of diagnosis, prognosis and goals for treatment? Eval Complexity OT Charge 69133 - Low Complexity PHYSICIAN CERTIFICATION: I certify the specified therapy services for Julien Portillo are required, authorized, and reviewed every 30 days.
== END 2025-08-14 23:59 | disposition home or self-care (01) ==
LOC: OT 09:00
PROVIDERS: PCP Nurse Practitioner; Visit Provider Physician Assistant
DX: M25.512 Pain in left shoulder (principal)
CPT/HCPCS: 97014; 97110; 97140; 97165; G0283

== ENCOUNTER 2025-08-14 17:00 | Outpatient (RCR) | payer MEDICARE, OTHER, SELFPAY | END 2025-08-14 23:59 | disposition home or self-care (01) | LOC: PT 17:00 | PROVIDERS: PCP Nurse Practitioner; Visit Provider Neurological Surgery | DX: R10.9 Unspecified abdominal pain (principal) | CPT/HCPCS: 97110; 97140; 97530 ==

== ENCOUNTER 2025-08-25 10:00 | Outpatient (RCR) | payer MEDICARE, OTHER, SELFPAY | END 2025-08-25 23:59 | disposition home or self-care (01) | LOC: OT 10:00 | PROVIDERS: PCP Nurse Practitioner; Visit Provider Physician Assistant | DX: M25.512 Pain in left shoulder (principal) | CPT/HCPCS: 97014; 97110; 97140; G0283 ==

== ENCOUNTER 2025-09-10 10:00 | Outpatient (RCR) | payer MEDICARE, OTHER, SELFPAY | END 2025-09-10 23:59 | disposition home or self-care (01) | LOC: PT 10:00 | PROVIDERS: PCP Nurse Practitioner; Visit Provider Neurological Surgery | DX: R10.9 Unspecified abdominal pain (principal) | CPT/HCPCS: 97110; 97140; 97530 ==